=== PATIENT | male | born 1945 | race Caucasian/White ===

== ENCOUNTER 2018-05-21 12:25 | Outpatient (REF) | payer OTHER, SELFPAY ==
[2018-05-21 22:14] LABS: Anion Gap 9.5 mmol/L (3-11); BUN 31 mg/dL (7-18); CO2 28.5 mmol/L (21.0-32.0); CREATININE 1.02 mg/dL (0.70-1.30); Chloride 101 mmol/L (98-107); Glucose 129 mg/dL (70-100); Potassium 4.5 mmol/L (3.5-5.1); Sodium 139 mmol/L (136-145)
[2018-05-23 10:19] LABS: PSA, Screening 1.5 ng/ml (0-6.5)
[2018-05-23 12:18] LABS: Hepatitis C Ab w Rflx HCV PCR Negative (NEGAT)
[2018-05-25 08:57] LABS: Testosterone, Free 15.8 ng/dL (3.28-12.2); Testosterone, Total 464 ng/dL (240-950)
== END 2018-05-21 12:45 ==
LOC: NCHCN 12:25
PROVIDERS: PCP Internal Medicine; Visit Provider Internal Medicine
DX: E11.9 Type 2 diabetes mellitus without complications (principal); N40.1 Benign prostatic hyperplasia with lower urinary tract symptoms; E03.9 Hypothyroidism, unspecified; I10 Essential (primary) hypertension; Z11.59 Encounter for screening for other viral diseases; Z12.5 Encounter for screening for malignant neoplasm of prostate
CPT/HCPCS: 80048; 84153; 84402; 84403; 86803; 84443

== ENCOUNTER 2019-07-01 16:03 | Outpatient (REF) | payer OTHER, SELFPAY ==
[2019-07-01 21:08] LABS: ALT 68 U/L (16-63); AST 27 U/L (15-37); Alkaline Phosphatase 89 U/L (46-116); BUN 34 mg/dL (7-18); Bilirubin, Total 0.5 mg/dL (0.2-1.0); Calcium 8.9 mg/dL (8.5-10.1); Chloride 103 mmol/L (98-107); Estimated GFR 59.35 (mL/min/1.73m2); Glucose 155 mg/dL (74-106); Potassium 4.7 mmol/L (3.5-5.1); Sodium 141 mmol/L (136-145); TSH 3.08 uIU/mL (0.36-3.74); Total Protein 7.1 g/dL (6.4-8.2)
[2019-07-04 12:55] LABS: Testosterone, Total 404 ng/dL (240-950)
== END 2019-07-01 16:23 ==
LOC: NCHCN 16:03
PROVIDERS: PCP Internal Medicine; Visit Provider Internal Medicine
DX: I10 Essential (primary) hypertension (principal); E11.9 Type 2 diabetes mellitus without complications; N40.1 Benign prostatic hyperplasia with lower urinary tract symptoms
CPT/HCPCS: 80053; 84403; 84443

== ENCOUNTER 2020-05-27 14:10 | Outpatient (REF) | payer OTHER, SELFPAY ==
[2020-05-27 21:38] LABS: Hemoglobin A1C 6.7 % (<5.7)
[2020-05-27 21:47] LABS: Anion Gap 7.5 mmol/L (3-11); BUN 24 mg/dL (7-18); CO2 28.5 mmol/L (21.0-32.0); Calcium 8.8 mg/dL (8.5-10.1); Calculated LDL 50 mg/dL (<100); Chloride 103 mmol/L (98-107); Cholesterol 121 mg/dL (<200); Estimated GFR 59.35 (mL/min/1.73m2); Glucose 134 mg/dL (74-106); HDL Cholesterol 52 mg/dL (40-60); Potassium 4.6 mmol/L (3.5-5.1); Sodium 139 mmol/L (136-145); TSH 3.02 uIU/mL (0.36-3.74); Triglyceride 96 mg/dL (<150)
[2020-05-28 19:06] LABS: PSA, Screening 1.1 ng/mL (0.0-6.5)
== END 2020-05-27 14:30 ==
LOC: NCHCN 14:10
PROVIDERS: PCP Internal Medicine; Visit Provider Internal Medicine
DX: E11.9 Type 2 diabetes mellitus without complications (principal); E03.9 Hypothyroidism, unspecified; I10 Essential (primary) hypertension; E78.00 Pure hypercholesterolemia, unspecified; Z12.5 Encounter for screening for malignant neoplasm of prostate
CPT/HCPCS: 80048; 80061; 84153; 83036; 84443

== ENCOUNTER 2020-11-16 13:21 | Outpatient (CLI) | payer OTHER, SELFPAY ==
--- NOTE | 2020-11-16 | DI.RAD_ITS ---
Exam(s) XR HUMERUS LT EXAM: XR HUMERUS LT CLINICAL HISTORY: INJURY PAIN T14.90. TECHNIQUE: 2D digital imaging was performed. COMPARISON: No exams were available for comparison no evidence of humeral fracture nor dislocation. Some degenerative cysts are noted in the greater tuberosity of the humeral head. No osseous lesions . FINDINGS: IMPRESSION: DATA REPOSITORY: RADIATION DOSE DELIVERED:
--- NOTE | 2020-11-16 17:54 | DI.VRAD_ITS ---
PROCEDURE INFORMATION: Exam: XR Left Humerus Exam date and time: 11/16/2020 5:00 PM Age: 75 years old Clinical indication: Patient HX: Left arm pain, left shoulder pain, after fall 11/15/2020. Best images possible TECHNIQUE: Imaging protocol: XR Left humerus. Views: 2 or more views. COMPARISON: CR XR SHOULDER LT COMPLETE 2+V 11/16/2020 5:12 PM FINDINGS: Bones/joints: Normal. Soft tissues: Normal. IMPRESSION: No evidence for acute posttraumatic abnormality. Dictated and Authenticated by: Lori Irvin MD. Ordering:ALFONSO Mcbride MD
== END 2020-11-16 13:41 ==
PROVIDERS: PCP Internal Medicine; Visit Provider Internal Medicine
DX: M25.511 Pain in right shoulder (principal); S49.81XA Other specified injuries of right shoulder and upper arm, initial encounter
CPT/HCPCS: 73060

== ENCOUNTER 2020-11-16 15:51 | Outpatient (CLI) | payer OTHER, SELFPAY ==
--- NOTE | 2020-11-16 | DI.RAD_ITS ---
Exam(s) XR SHOULDER LT COMPLETE 2+V EXAM: XR SHOULDER LT COMPLETE 2+V CLINICAL HISTORY: injury t14.90xA. TECHNIQUE: 2D digital imaging was performed. COMPARISON: No exams were available for comparison FINDINGS: There is no evidence of acute fracture or dislocation of the humeral head. Moderate degenerative joaquin nges in the glenohumeral joint are noted. There is a small 1-2 millimeter ossified density seen supa cent to the inferior aspect of the humeral head and osseous glenoid. Possibly loose intra-articular body versus is bony Bankart lesion. Subtle calcification is noted in the medial subacromial space. Degenerative changes in the AC joint as well as impingement hook on the inferior articular surface of the acromion noted. These findings are most probably causing impingement upon the rotator cuff josé azul. IMPRESSION: DATA REPOSITORY: RADIATION DOSE DELIVERED:
--- NOTE | 2020-11-16 17:54 | DI.VRAD_ITS ---
PROCEDURE INFORMATION: Exam: XR Left Shoulder Exam date and time: 11/16/2020 4:42 PM Age: 75 years old Clinical indication: Patient HX: Left shoulder pain, PT fell yesterday. Best images possible due to PT mobility TECHNIQUE: Imaging protocol: XR Left shoulder. Views: 2 or more views. COMPARISON: No relevant prior studies available. FINDINGS: Bones/joints: Normal. Soft tissues: Normal. IMPRESSION: No evidence for acute posttraumatic abnormality. Dictated and Authenticated by: Lori Irvin MD. Ordering:ALFONSO Mcbride MD
== END 2020-11-16 16:11 ==
PROVIDERS: PCP Internal Medicine; Visit Provider Internal Medicine
DX: S49.92XA Unspecified injury of left shoulder and upper arm, initial encounter (principal); W19.XXXA Unspecified fall, initial encounter
CPT/HCPCS: 73030

== ENCOUNTER 2021-02-07 17:46 | Outpatient (REF) | payer OTHER, SELFPAY ==
[2021-02-09 12:59] LABS: COVID-19 RT-PCR UVMMC Result Negative (Negative)
== END 2021-02-07 17:47 | disposition home or self-care (01) ==
LOC: NCHCN 17:46
PROVIDERS: PCP Internal Medicine; Visit Provider Family Medicine
DX: Z20.822 Contact with and (suspected) exposure to COVID-19 (principal); J06.9 Acute upper respiratory infection, unspecified
CPT/HCPCS: U0003

== ENCOUNTER 2021-03-10 11:04 | Outpatient (REF) | payer MEDICARE, SELFPAY ==
[2021-03-10 14:32] LABS: Anion Gap 6.5 mmol/L (3-11); BUN 33 mg/dL (7-18); CO2 31.5 mmol/L (21.0-32.0); Chloride 102 mmol/L (98-107); Glucose 211 mg/dL (74-106); Potassium 5.1 mmol/L (3.5-5.1); Sodium 140 mmol/L (136-145)
[2021-03-10 22:37] LABS: PSA, Diagnostic 1.6 ng/mL (0.0-6.5)
[2021-03-14 13:09] LABS: Testosterone, Total 210 ng/dL (240-950)
== END 2021-03-10 11:05 | disposition home or self-care (01) ==
LOC: NCHCN 11:04
PROVIDERS: PCP Internal Medicine; Visit Provider Internal Medicine
DX: E11.9 Type 2 diabetes mellitus without complications (principal); I10 Essential (primary) hypertension; E03.9 Hypothyroidism, unspecified; E29.1 Testicular hypofunction; N39.41 Urge incontinence; N40.1 Benign prostatic hyperplasia with lower urinary tract symptoms
CPT/HCPCS: 80048; 84402; 84403; 84153; 84443

== ENCOUNTER 2021-06-03 11:24 | Emergency (ER) | payer MEDICARE, SELFPAY ==
[2021-06-03] VITALS (14 sets, daily range): BP systolic 139–167; BP diastolic 76–88; PULSE 67–80; RESP 16–43; TEMP 36.7; O2SAT 94–99
--- NOTE | 2021-06-03 11:30 | RT.EKG_ITS ---
APPROVED REPORT Exam: Resting ECG Reason for Exam: sob Patient Location: E HR:77 bpm ECG Measurements Heart Rate 77 AXIS TX 183 P 37 QRSd 95 QRS 1 QT 365 T 8 QTc 413 Conclusion Sinus rhythm...normal P axis, V-rate 60- 99
--- NOTE | 2021-06-03 12:15 | DI.RAD_ITS ---
Exam(s) XR PORTABLE CHEST AP EXAM: XR PORTABLE CHEST AP CLINICAL HISTORY: cough 3 weeks TECHNIQUE: 2D digital imaging was performed of the chest. One image was obtained. An AP view was ob tained. COMPARISON: No exams were available for comparison FINDINGS: MEDIASTINUM: Normal. HEART: Normal. PULMONARY VASCULATURE: Normal. LUNGS: No focal consolidating infiltrates are seen. Mildly prominent interstitial markings are seen in the lungs. These are nonspecific. This may be due to poor inspiration and crowding of the pulmon suresh vasculature, chronic interstitial fibrotic change or acute interstitial infiltrate. PLEURAL SPACE: No pleural effusion or pneumothorax. BONE:Within normal limits for the patient's age. OTHER FINDINGS:Normal. IMPRESSION: 1. Mild prominence of the interstitial markings in the lungs. Differential considerations include po or inspiration, chronic interstitial disease or acute interstitial infiltrate. Please correlate clin ically. DATA REPOSITORY: RADIATION DOSE DELIVERED:
--- NOTE | 2021-06-03 12:44 | ED.GENADUL_ITS ---
Discharge Plan Disposition Patient Disposition: HOME Condition: Stable Discharge Details Clinical Impression: Pneumonia Primary Care Provider: Reed Calderón ED Provider: Amol Saleh Home Meds and New Rx's Prescriptions: New levofloxacin 750 mg tablet 750 mg PO DAILY Qty: 4 RF: 0 Continued multivitamin 1 EACH tablet 1 ea PO DAILY RF: 0 loratadine-pseudoephedrine [Loratadine-D] 1 EACH tablet extended release 24 hr 1 tab-cap PO DAILY RF: 0 alprazolam [Xanax] 0.5 MG tablet 0.5 mg PO PRN PRNRF: 0 calcium carbonate 600 MG tablet 600 mg PO DAILY RF: 0 tamsulosin 0.4 MG capsule 0.8 mg PO DAILY RF: 0 betamethasone valerate 15 GM cream 15 gm Topical PRN PRNRF: 0 levothyroxine 125 MCG tablet 125 mcg PO DAILY RF: 0 ascorbic acid (vitamin C) [Vitamin C] 500 MG capsule, extended release 500 mg PO DAILY RF: 0 aspirin [Aspirin Low-Strength] 81 MG tablet,chewable 81 mg PO DAILY RF: 0 codeine-guaifenesin 120 ML liquid 120 ml PO PRN PRNRF: 0 zinc 50 MG tablet 50 mg PO DAILY RF: 0 metoprolol succinate 25 MG tablet extended release 24 hr 50 mg PO DAILY RF: 0 ergocalciferol (vitamin D2) [Vitamin D2] 50,000 UNIT capsule 1 tab-cap PO DAILY RF: 0 testosterone cypionate 200 MG/1 ML oil 200 mg IM UNKNOWN RF: 0 magnesium 200 MG tablet 200 mg PO DAILY RF: 0 vardenafil [Levitra] 20 MG tablet 20 mg PO DAILY RF: 0 glucosamine sulfate 2KCl 1,000 MG tablet 1,000 mg PO BID RF: 0 Pentasa 250 MG capsule, extended release 1,000 mg PO QID Qty: 120 RF: 3 diclofenac-misoprostol [Arthrotec 50] 1 EACH tablet,IR,delayed rel,biphasic 1 ea PO TID Qty: 90 RF: 1 acetaminophen [Arthritis Pain Relief (acetam)] 650 MG tablet extended release 1,300 mg PO BID RF: 0 budesonide 3 mg capsule,delayed,extend.release 3 mg PO DAILY RF: 0 loperamide 2 mg capsule 2 mg PO PRN PRNRF: 0 metformin 500 mg tablet 500 mg PO DAILY RF: 0 oxybutynin chloride 5 mg tablet extended release 24hr 5 mg PO DAILY RF: 0 melatonin 1 mg tablet extended release 1 mg PO HS RF: 0 cod liver oil Capsule 1 cap PO DAILY RF: 0 Pepto-Bismol 262 mg tablet 1 tab PO PRN PRNRF: 0 diphenoxylate-atropine [Lomotil] 2.5-0.025 mg Tablet 1 tab PO PRN PRNRF: 0 Arthrostatin 1 tab PO DAILY RF: 0 amlodipine 5 MG tablet 5 mg PO DAILY RF: 0 Discharge Instructions Instructions: Levofloxacin (By mouth), Pneumonia (ED) Care Plan Goals: Please drink plenty of fluids to stay hydrated and allow for plenty of rest. Please contact your primary care physician to arrange follow-up. You may have COVID-19. A Covid test was performed today. Please maintain home isolation until Covid test result is available and negative. Return to the ER immediately for any worsening or new concerning symptoms. Your glucose was mildly elevated today at 164. Please be sure to discuss this with your primary care physician. Your blood pressure was elevated today at 162/87. This may be related to medication that you have taken and should be rechecked. Be please be sure to discuss with your primary care physician Referrals: Reed Calderón MD [Primary Care Provider] - Medical Decision Making 1250 -- 75-year-old male here with cough and congestion waxing waning over the past 3-week, negative COVID-19 2 days ago, 2 family members sick with respiratory illness also both negative for Covid. Patient patient is saturating well and in no respiratory distress with clear lung sounds bilaterally Suspect viral upper respiratory tract infection. Given persistence of symptoms and prior pneumonia, consider pneumonia. I will obtain chest x-ray. Consider Covid and will send Covid testing. Screening EKG was obtained by nursing and reviewed and interpreted by me: Please see report, sinus rhythm, nondiagnostic. 1325 -- cxr reviewed and interpreted by radiology: 1. Mild prominence of the interstitial markings in the lungs. Differential considerations include poor inspiration, chronic interstitial disease or acute interstitial infiltrate. Please correlate clinically. Patient has multiple antibiotic allergies. Plan to treat with levaquin for community acquired pneumonia. Patient provided informed consent to treat with fluoroquinolone. Usual and customary discharge instructions were provided to patient. Medical screening exam was performed today and patient is stable for discharge with outpatient follow-up. HPI General Mode of arrival: ambulatory . Date/Time Provider Initiated Documentation: 06/03/21 11:34 . Limitations to Documentation: no limitations . Information obtained by: patient . HPI Narrative: 75-year-old male presents with chief complaint of cough. Patient notes persistent cough with associated ear pressure and sinus congestion, waxing and waning over the past 3 weeks. Cough is productive of white sputum intermittently. He has associated shortness of breath. No associated chest pain. No associated fever. He has had some body aches. Patient was seen at pharmacy and had Covid negative test 2 days ago. 2 family members are sick with respiratory illness 2 of both tested negative for Covid. Related Data Home Medications Medication Instructions Recorded Confirmed alprazolam [Xanax] 0.5 mg PO PRN PRN NS 08/18/14 06/03/21 ascorbic acid (vitamin C) [Vitamin 500 mg PO DAILY NS 08/18/14 06/03/21 C] aspirin [Aspirin Low-Strength] 81 mg PO DAILY tab-cap NS 08/18/14 06/03/21 betamethasone valerate 15 gm TOPICAL PRN PRN script NS 08/18/14 06/03/21 calcium carbonate 600 mg PO DAILY NS 08/18/14 06/03/21 codeine-guaifenesin 120 ml PO PRN PRN NS 08/18/14 06/03/21 ergocalciferol (vitamin D2) 1 tab-cap PO DAILY tab-cap NS 08/18/14 06/03/21 [Vitamin D2] glucosamine sulfate 2KCl 1,000 mg PO BID NS 08/18/14 06/03/21 levothyroxine 125 mcg PO DAILY tab-cap NS 08/18/14 06/03/21 loratadine-pseudoephedrine 1 tab-cap PO DAILY tab-cap NS 08/18/14 06/03/21 [Loratadine-D] magnesium 200 mg PO DAILY NS 08/18/14 06/03/21 metoprolol succinate 50 mg PO DAILY tab-cap NS 08/18/14 06/03/21 multivitamin 1 ea PO DAILY NS 08/18/14 06/03/21 tamsulosin 0.8 mg PO DAILY tab-cap NS 08/18/14 06/03/21 testosterone cypionate 200 mg IM UNKNOWN vial NS 08/18/14 06/03/21 vardenafil [Levitra] 20 mg PO DAILY tab-cap NS 08/18/14 06/03/21 zinc 50 mg PO DAILY NS 08/18/14 06/03/21 diclofenac-misoprostol [Arthrotec 1 ea PO TID #90 tablet. 09/07/14 06/03/21 50] Pentasa 1,000 mg PO QID #120 tab-cap 09/14/14 06/03/21 acetaminophen [Arthritis Pain 1,300 mg PO BID 11/16/14 06/03/21 Relief (acetam)] Arthrostatin 1 tab PO DAILY 11/04/17 06/03/21 amlodipine 5 mg PO DAILY 11/04/17 06/03/21 Pepto-Bismol 1 tab PO PRN PRN 06/03/21 06/03/21 budesonide 3 mg PO DAILY 06/03/21 06/03/21 cod liver oil 1 cap PO DAILY 06/03/21 06/03/21 diphenoxylate-atropine [Lomotil] 1 tab PO PRN PRN 06/03/21 06/03/21 levofloxacin 750 mg PO DAILY #4 tab 06/03/21 loperamide 2 mg PO PRN PRN 06/03/21 06/03/21 melatonin 1 mg PO HS 06/03/21 06/03/21 metformin 500 mg PO DAILY 06/03/21 06/03/21 oxybutynin chloride 5 mg PO DAILY 06/03/21 06/03/21 Previous Rx's Medication Instructions Recorded diclofenac-misoprostol [Arthrotec 1 ea PO TID #90 tablet. 09/07/14 50] levofloxacin 750 mg PO DAILY #4 tab 06/03/21 Allergies Allergy/AdvReac Type Severity Reaction Status Date / Time cephalexin monohydrate Allergy Unverified 06/03/21 11:45 [From Keflex] Penicillins Allergy Unverified 06/03/21 11:45 Sulfa (Sulfonamide Allergy Unverified 06/03/21 11:45 Antibiotics) Tetracyclines Allergy Unverified 06/03/21 11:45 General Stated Complaint: SOB KIRBY: 2 Review of Systems All systems reviewed & are unremarkable except as noted in HPI and below Constitutional Constitutional: Reports body ache(s) and Denies fever(s) Respiratory Respiratory: Reports as per HPI PFSH All Active Problems (Updated 06/03/21 @ 13:27 by Amol Saleh MD) Pneumonia (Acute) Medical History Depression Diabetes Hyperlipidemia Hypertension Hypogonadism in male Hypothyroidism Osteoarthritis Paroxysmal a-fib Psoriasis Urinary frequency Surgical History 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 Social History Smoking/Tobacco Use Status: Former Tobacco Use Smoking risk assessment performed?: Yes Alcohol Intake: current Alcohol Intake frequency: 0-2 drinks per day Drug use: Never Do you feel safe at home: Yes Do you feel safe in your relationship?: Yes Exam Const General: cooperative and no acute distress HENMT Ears: TM's normal bilaterally Mouth: moist mucous membranes Throat: posterior oropharynx abnormal erythema; no edema and no exudates Eyes Conjunctivae: normal conjunctivae Sclera: normal sclerae Neck Neck: trachea midline and supple Resp Auscultation: clear to auscultation bilaterally, no rales, no rhonchi and no wheezes Cardio Rate: regular rate and not tachycardic Rhythm: regular rhythm GI Palpation: soft, not firm, no guarding, no masses, not rigid and nontender Skin General skin exam: no rashes or lesions noted Neuro General: patient alert, patient awake, patient oriented x3 and tone normal Extrem General: no edema Psych Appearance: grossly normal Mental Status: mental status grossly normal Course Vital Signs Vital signs: Vital Signs Temperature 36.7 C 06/03/21 11:28 Pulse 78 06/03/21 11:28 Respiratory Rate 16 06/03/21 11:28 Blood Pressure 162/87 H 06/03/21 11:28 Pulse Oximetry 99 06/03/21 11:28 Temperature 36.7 C 06/03/21 11:28 Temperature Source Skin 06/03/21 11:28 Pulse 78 06/03/21 11:28 Respiratory Rate 16 06/03/21 11:28 Respiratory Effort Incrsd Work of Breathing 06/03/21 11:35 Blood Pressure 162/87 H 06/03/21 11:28 Pulse Oximetry 99 06/03/21 11:28 Oxygen Delivery Method Room Air 06/03/21 11:28 Oxygen Flow Rate 0 06/03/21 11:28 Pain Level 0 06/03/21 11:28 PAWSS Have you Been Recently Intoxicated or Drunk Within the Last 30 days?: No Have you Ever Experienced Previous Episodes of Alcohol Withdrawal?: No Have you ever Experienced Withdrawal Seizures?: No Have you ever Experienced Delirium Tremens(DT)s?: No Have you ever undergone Alcohol Rehabilitation Treatment (i.e, inpt ot out patient treatment programs)?: No Have you ever Experienced Blackouts?: No Have you ever Combined Alcohol with other Downers within the last 90 days?: No Have you ever Combined Alcohol with any other Substance of Abuse during the last 90 days?: No Positive Blood Alcohol level on Presentation? [PCS.BAL]: No Evidence of Increased Autonomic Activity (i.e. HR>120, tremor, sweating, agitation, nausea)?: No Result: 0
[2021-06-03 12:48] LABS: Abs Immature Grans 0.05 10^3/uL (0.0-0.06); Absolute Basophil Count 0.02 10^3/uL (0.0-0.2); Absolute Monocyte Count 0.66 10^3/uL (0.1-0.8); Absolute Neutrophil Count 5.42 10^3/uL (1.2-6.7); Basophils % 0.3; Eosinophils % 2.7; HCT 48.8 % (40.0-50.0); HGB 16.3 g/dL (13.5-17.5); Immature Grans % 0.7; Lymphocytes % 13.6; MCH 31.2 pg (27.0-33.0); MCHC 33.4 % (32.0-36.0); MCV 93.3 fL (80-95); Neutrophils % 73.7; Nucleated RBC 0 %; Platelet Count 292 10^3/uL (130-400); RBC 5.23 10^6/uL (4.36-5.78); RDW 12.3 % (11.8-14.1); RDW-SD 42.5 fL; WBC 7.35 10^3/uL (4.4-10.8)
[2021-06-03 13:14] LABS: ALT 85 U/L (16-63); AST 32 U/L (15-37); Albumin 3.7 g/dL (3.4-5.0); Alkaline Phosphatase 91 U/L (46-116); BUN 21 mg/dL (7-18); Bilirubin, Total 0.6 mg/dL (0.2-1.0); CREATININE 0.9 mg/dL (0.70-1.30); Calcium 8.8 mg/dL (8.5-10.1); Chloride 100 mmol/L (98-107); Glucose 164 mg/dL (74-106); Potassium 4.1 mmol/L (3.5-5.1); Sodium 136 mmol/L (136-145); Total Protein 7.6 g/dL (6.4-8.2)
[2021-06-03] MEDS: levoFLOXacin 250 MG TAB 750 MG PO (13:49)
[2021-06-04 13:16] LABS: COVID-19 RT-PCR UVMMC Result Negative (Negative)
--- NOTE | 2021-06-06 07:44 | NUR.NOTE ---
Nursing Note: Negative Covid result given to pt--verbalizes understanding.
== END 2021-06-03 14:24 | disposition home or self-care (01) ==
PROVIDERS: Emergency Provider Student in an Organized Health Care Education/Training Program; PCP Internal Medicine
DX: J18.9 Pneumonia, unspecified organism (principal); Z20.822 Contact with and (suspected) exposure to COVID-19; R05.1 Acute cough
CPT/HCPCS: 36415; 80053; 93005; 99283; 99284; U0003; U0005; 71045; 85025; 93010

== ENCOUNTER 2021-10-04 16:09 | Outpatient (REF) | payer MEDICARE, SELFPAY ==
[2021-10-04 15:18] LABS: CREATININE 0.9 mg/dL (0.70-1.30)
== END 2021-10-04 16:10 | disposition home or self-care (01) ==
LOC: NCHCN 16:09
PROVIDERS: PCP Internal Medicine; Visit Provider Internal Medicine
DX: U07.1 COVID-19 (principal)
CPT/HCPCS: 82565

== ENCOUNTER 2022-03-28 16:38 | Outpatient (REF) | payer MEDICARE, SELFPAY ==
[2022-03-30 09:46] LABS: PSA, Screening 1.6 ng/mL (<=6.5)
[2022-04-06 13:02] LABS: Testosterone, Free 36.9 ng/dL (3.08-11.3); Testosterone, Total 784 ng/dL (240-950)
== END 2022-03-28 16:39 | disposition home or self-care (01) ==
LOC: NCHCN 16:38
PROVIDERS: PCP Internal Medicine; Visit Provider Internal Medicine
DX: N40.1 Benign prostatic hyperplasia with lower urinary tract symptoms (principal); E11.9 Type 2 diabetes mellitus without complications; I10 Essential (primary) hypertension; E29.1 Testicular hypofunction; K52.839 Microscopic colitis, unspecified; Z12.5 Encounter for screening for malignant neoplasm of prostate
CPT/HCPCS: 84153; 84402; 84403

== ENCOUNTER 2022-07-06 16:20 | Outpatient (REF) | payer MEDICARE, SELFPAY ==
[2022-07-06 14:26] LABS: ALT 70 U/L (16-63); AST 25 U/L (15-37); Alkaline Phosphatase 114 U/L (46-116); BUN 24 mg/dL (7-18); Bilirubin, Total 0.8 mg/dL (0.2-1.0); CREATININE 0.9 mg/dL (0.70-1.30); Calcium 9.6 mg/dL (8.5-10.1); Chloride 101 mmol/L (98-107); Estimated GFR 88.51 (mL/min/1.73m2); Glucose 162 mg/dL (74-106); Potassium 4.4 mmol/L (3.5-5.1); Sodium 138 mmol/L (136-145); Total Protein 7.9 g/dL (6.4-8.2)
== END 2022-07-06 16:21 | disposition home or self-care (01) ==
LOC: NCHCN 16:20
PROVIDERS: PCP Internal Medicine; Visit Provider Internal Medicine
DX: E11.9 Type 2 diabetes mellitus without complications (principal)
CPT/HCPCS: 80053

== ENCOUNTER 2022-08-11 01:01 | Outpatient (CLI) | payer MEDICARE, SELFPAY ==
--- NOTE | 2022-08-11 | DI.US_ITS ---
Exam(s) US LOWER EXTREMITY VENOUS RT EXAM: US LOWER EXTREMITY VENOUS RT CLINICAL HISTORY: RT CALF PAIN, M79.661,RT KNEE PAIN,M25.561,RT LEG EDEMA, R60.0,? DVT TECHNIQUE: Right lower extremity venous ultrasound performed using grayscale, color-flow, and spectr al Doppler analysis. COMPARISON: No exams were available for comparison FINDINGS: The right common femoral, femoral and popliteal veins demonstrate normal compressibility, augmentatio n, and color Doppler. The posterior tibial veins are patent. The saphenofemoral junction is unremark able. There is a 3.7 x 1.4 x 1.9 cm Gomez cyst. There is fluid seen anterior to the patella. IMPRESSION: 1. No evidence of a right lower extremity DVT. 2. Fluid seen anterior to the patella which may represent prepatellar bursitis. Hematoma, abscess or seroma cannot be excluded. Please correlate clinically. 3. Gomez cyst. DATA REPOSITORY:
== END 2022-08-11 01:21 ==
LOC: DI 01:09
PROVIDERS: PCP Internal Medicine; Visit Provider Internal Medicine
DX: M79.661 Pain in right lower leg (principal); M71.21 Synovial cyst of popliteal space [Baker], right knee; M25.561 Pain in right knee; R60.0 Localized edema
CPT/HCPCS: 93971

== ENCOUNTER 2022-08-21 12:46 | Outpatient (CLI) | payer MEDICARE, SELFPAY ==
[2022-08-21 13:19] LABS: Abs Immature Grans 0.07 10^3/uL (0.0-0.06); Absolute Basophil Count 0.02 10^3/uL (0.0-0.2); Absolute Eosinophil Count 0.08 10^3/uL (0.0-0.7); Absolute Lymphocyte Count 1.01 10^3/uL (1.2-3.4); Absolute Monocyte Count 0.63 10^3/uL (0.1-0.8); Absolute Neutrophil Count 8.13 10^3/uL (1.2-6.7); Basophils % 0.2; Eosinophils % 0.8; HCT 42.4 % (40.0-50.0); HGB 14.4 g/dL (13.5-17.5); Immature Grans % 0.7; Lymphocytes % 10.2; MCH 30.4 pg (27.0-33.0); MCV 90 fL (80-95); MPV 8.8 fL (8.0-11.0); Monocytes % 6.3; Neutrophils % 81.8; Platelet Count 361 10^3/uL (130-400); RBC 4.74 10^6/uL (4.36-5.78); RDW 11.9 % (11.8-14.1); RDW-SD 38.9 fL; WBC 9.94 10^3/uL (4.4-10.8)
[2022-08-21 13:29] LABS: C-Reactive Protein 1.74 mg/dL (0.0-0.3)
[2022-08-21 13:33] LABS: ESR 54 mm/hr (0-20)
== END 2022-08-21 12:47 | disposition home or self-care (01) ==
LOC: LBO 12:46
PROVIDERS: PCP Internal Medicine; Visit Provider Orthopaedic Surgery Adult Reconstructive Orthopaedic Surgery
DX: M25.561 Pain in right knee (principal); Z96.651 Presence of right artificial knee joint; G89.29 Other chronic pain; R53.81 Other malaise; R70.0 Elevated erythrocyte sedimentation rate
CPT/HCPCS: 36415; 85652; 85025; 86140

== ENCOUNTER 2022-08-28 18:45 | Outpatient (REF) | payer MEDICARE, SELFPAY ==
[2022-08-28 20:55] LABS: Abs Immature Grans 0.05 10^3/uL (0.0-0.06); Absolute Basophil Count 0.03 10^3/uL (0.0-0.2); Absolute Eosinophil Count 0.43 10^3/uL (0.0-0.7); Absolute Lymphocyte Count 1.29 10^3/uL (1.2-3.4); Absolute Monocyte Count 0.99 10^3/uL (0.1-0.8); Absolute Neutrophil Count 7.07 10^3/uL (1.2-6.7); Basophils % 0.3; Eosinophils % 4.4; HCT 44.6 % (40.0-50.0); Immature Grans % 0.5; Lymphocytes % 13.1; MCH 30.6 pg (27.0-33.0); MCHC 33.6 % (32.0-36.0); MCV 91 fL (80-95); MPV 9.7 fL (8.0-11.0); Neutrophils % 71.7; Platelet Count 398 10^3/uL (130-400); RDW 12.4 % (11.8-14.1); WBC 9.86 10^3/uL (4.4-10.8)
[2022-08-28 21:05] LABS: ESR 47 mm/hr (0-20)
[2022-08-28 21:10] LABS: Bilirubin Negative (Negative); Blood Negative (Negative); Clarity Sl Cloudy (Clear); Glucose Negative (Negative); Ketones Negative (Negative); Leukocyte Esterase Negative (Negative); Nitrite Negative (Negative); Specific Gravity 1.025 (1.005-1.025); Urobilinogen 0.2 mg/dL (Up to 0.2)
[2022-08-28 21:15] LABS: C-Reactive Protein 1.65 mg/dL (0.0-0.3)
[2022-08-28 21:25] LABS: Bacteria Negative HPF (Negative); C & S Indicated? No; Casts Negative LPF (Negative); Crystals Negative HPF (Negative); Epithelial Cells Rare HPF (Negative); Mucus Negative (Negative); RBC 0-2 HPF (0-2); WBC 0-2 HPF (0-5)
== END 2022-08-28 18:46 | disposition home or self-care (01) ==
LOC: NCHCN 18:45
PROVIDERS: PCP Internal Medicine; Visit Provider Family Medicine
DX: N40.1 Benign prostatic hyperplasia with lower urinary tract symptoms (principal); R70.0 Elevated erythrocyte sedimentation rate; M25.50 Pain in unspecified joint; G62.9 Polyneuropathy, unspecified; R82.998 Other abnormal findings in urine
CPT/HCPCS: 85652; 81003; 81015; 85025; 86140

== ENCOUNTER 2022-08-31 14:14 | Emergency (ER) | payer MEDICARE, SELFPAY ==
[2022-08-31 14:28] VITALS: BP 121/69; TEMP 37; O2SAT 99
--- NOTE | 2022-08-31 15:05 | ED.GENADUL_ITS ---
Discharge Plan Disposition Patient Disposition: Home Discharge Details Clinical Impression: Finger laceration Primary Care Provider: Reed Calderón ED Provider: Didier Cortes Home Meds and New Rx's Prescriptions: Continued finasteride 5 mg tablet 5 mg PO DAILY tramadol 50 mg tablet See Rx Instructions PO Q6H PRN Rx Instructions: 1-2 tabs orally every 6 hours PRN; clindamycin HCl 300 mg capsule See Rx Instructions PO .COMPLEX Rx Instructions: orally; Take 2 capsules 1hr prior to dental procedure, and 1 capsule 4 times a day for a soft tissue infection. atorvastatin 20 mg tablet 20 mg PO DAILY diphenhydramine-acetaminophen [Tylenol PM Extra Strength] 25-500 mg tablet 2 tab PO QHS PRN (Reason: sleep) Daily Probiotic (10 Strains) 4 billion cell capsule PO multivitamin 1 EACH tablet 1 ea PO DAILY Loratadine-D 1 EACH tablet extended release 24 hr 1 tab-cap PO DAILY alprazolam [Xanax] 0.5 MG tablet 0.5 mg PO PRN PRN calcium carbonate 600 MG tablet 600 mg PO DAILY tamsulosin 0.4 MG capsule 0.8 mg PO DAILY betamethasone valerate 15 GM cream 15 g Topical PRN PRN levothyroxine 125 MCG tablet 125 mcg PO DAILY ascorbic acid (vitamin C) [Vitamin C] 500 MG capsule, extended release 500 mg PO DAILY zinc 50 MG tablet 50 mg PO DAILY ergocalciferol (vitamin D2) [Vitamin D2] 50,000 UNIT capsule 1 tab-cap PO DAILY testosterone cypionate 200 MG/1 ML oil 200 mg IM UNKNOWN magnesium 200 MG tablet 200 mg PO DAILY glucosamine sulfate 2KCl 1,000 MG tablet 1,000 mg PO BID metoprolol succinate 25 mg tablet extended release 24 hr 50 mg PO BID loperamide 2 mg capsule 2 mg PO PRN PRN Patient Comments: Take 1-2 capsule by mouth as needed metformin 500 mg tablet 500 mg PO DAILY melatonin 1 mg tablet extended release 1 mg PO HS cod liver oil Capsule 1 cap PO DAILY Pepto-Bismol 262 mg tablet 1 tab PO PRN PRN diphenoxylate-atropine [Lomotil] 2.5-0.025 mg Tablet 1 tab PO PRN PRN oxybutynin chloride 5 mg tablet extended release 24hr 10 mg PO DAILY Patient Comments: Take 1 tablet by mouth once a day budesonide 3 mg capsule,delayed,extend.release 3 mg PO DAILY Rx Instructions: Take 3tabs daily until better, then 2 daily for 1 week, 1 tab Qam for 1 week, and then stop. amlodipine 5 mg tablet 10 mg PO DAILY Discharge Instructions Instructions: Finger Laceration (ED), Skin Adhesive Care (ED) Discharge Data Discharge Date/Time-TO BE ENTERED AT DEPARTURE: 08/31/22 15:27 Discharge Physician: Didier Cortes Medical Decision Making Patient presents to the emergency department saying 1 cm superficial laceration to the right index finger just. Laceration was repaired successfully with skin glue Differential Diagnosis Differential Diagnosis: 1. Finger laceration 2. Finger abrasion Medical Records Medical records reviewed: Yes I reviewed the patient's medical records. HPI General Date/Time Provider Initiated Documentation: 08/31/22 15:04 . HPI Narrative: Patient presents to the emergency department after he sustained a laceration to his right index finger with a kitchen knife. Patient states he had significant bleeding but bleeding has stopped Related Data Home Medications Medication Instructions Recorded Confirmed Loratadine-D 10 mg-240 mg 1 tab-cap PO DAILY 08/18/14 06/22/22 tablet,extended release 24 hr (loratadine-pseudoephedrine) Vitamin C 500 mg capsule,extended 500 mg PO DAILY 08/18/14 06/22/22 release (ascorbic acid (vitamin C)) Vitamin D2 1,250 mcg (50,000 unit) 1 tab-cap PO DAILY 08/18/14 06/22/22 capsule (ergocalciferol (vitamin D2)) Xanax 0.5 mg tablet (alprazolam) 0.5 mg PO PRN PRN 08/18/14 06/22/22 betamethasone valerate 0.1 % 15 g topical PRN PRN 08/18/14 06/22/22 topical cream calcium carbonate 600 mg calcium 600 mg PO DAILY 08/18/14 06/22/22 (1,500 mg) tablet glucosamine sulfate 2KCl 1,000 mg 1,000 mg PO BID 08/18/14 06/22/22 tablet levothyroxine 125 mcg tablet 125 mcg PO DAILY 08/18/14 06/22/22 magnesium 200 mg tablet 200 mg PO DAILY 08/18/14 06/22/22 multivitamin 1 ea PO DAILY 08/18/14 06/22/22 tamsulosin 0.4 mg capsule 0.8 mg PO DAILY 08/18/14 06/22/22 testosterone cypionate 200 mg/mL 200 mg IM UNKNOWN 08/18/14 06/22/22 intramuscular oil zinc 50 mg tablet 50 mg PO DAILY 08/18/14 06/22/22 bismuth subsalicylate 262 mg 1 tab PO PRN PRN 06/03/21 06/22/22 tablet (Pepto-Bismol) cod liver oil 1 cap PO DAILY 06/03/21 06/22/22 diphenoxylate-atropine 2.5 1 tab PO PRN PRN 06/03/21 06/22/22 mg-0.025 mg tablet (Lomotil) loperamide 2 mg capsule 2 mg PO PRN PRN 06/03/21 06/22/22 melatonin 1 mg tablet,extended 1 mg PO HS 06/03/21 06/22/22 release metformin 500 mg tablet 500 mg PO DAILY 06/03/21 06/22/22 metoprolol succinate 25 mg 50 mg PO BID 03/23/22 06/22/22 tablet,extended release 24 hr Lactobac 51-Bifidobac cap PO 06/21/22 06/22/22 3-L.lactis-S.thermophilus 4 billion cell capsule (Daily Probiotic (10 Strains)) amlodipine 5 mg tablet 10 mg PO DAILY 06/21/22 06/22/22 atorvastatin 20 mg tablet 20 mg PO DAILY 06/21/22 06/22/22 budesonide 3 mg 3 mg PO DAILY 06/21/22 06/22/22 capsule,delayed,extended release clindamycin HCl 300 mg capsule See Rx Instructions PO .COMPLEX 06/21/22 06/22/22 diphenhydramine 25 2 tab PO QHS PRN sleep 06/21/22 06/22/22 mg-acetaminophen 500 mg tablet (Tylenol PM Extra Strength) finasteride 5 mg tablet 5 mg PO DAILY 06/21/22 06/22/22 oxybutynin chloride 5 mg 10 mg PO DAILY 06/21/22 06/22/22 tablet,extended release 24 hr tramadol 50 mg tablet See Rx Instructions PO Q6H PRN 06/21/22 06/22/22 Allergies Allergy/AdvReac Type Severity Reaction Status Date / Time brimonidine [From Combigan] Allergy Severe Verified 06/21/22 21:16 timolol [From Combigan] Allergy Severe Verified 06/21/22 21:16 cephalexin monohydrate Allergy Verified 03/23/22 11:12 [From Keflex] Penicillins Allergy Verified 03/23/22 11:12 Sulfa (Sulfonamide Allergy Verified 03/23/22 11:12 Antibiotics) Tetracyclines Allergy Verified 03/23/22 11:12 General Stated Complaint: Laceration KIRBY: 4 Review of Systems All systems reviewed & are unremarkable except as noted in HPI and below Eyes Eyes: Reports as per HPI and Reports system reviewed and no additional complaints, except as documented ENT Ears, Nose, Mouth, and Throat: Reports system reviewed and no additional complaints, except as documented Cardiovascular Cardiovascular: Reports system reviewed and no additional complaints, except as documented Respiratory Respiratory: Reports system reviewed and no additional complaints, except as do cumented Musculoskeletal Musculoskeletal: Reports system reviewed and no additional complaints, except as documented PFSH All Active Problems (Updated 08/31/22 @ 15:24 by Didier Cortes MD) Finger laceration (Acute) Neuropathy (Acute) Corns and callosities (Acute) Nail dystrophy (Acute) Medical History Depression Diabetes Hyperlipidemia Hypertension Hypogonadism in male Hypothyroidism Osteoarthritis Paroxysmal a-fib Psoriasis Urinary frequency Surgical History 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 Social History Smoking/Tobacco Use Status: Former Tobacco Use Smoking risk assessment performed?: Yes Alcohol Intake: current Alcohol Intake frequency: 0-2 drinks per day Drug use: Never Do you feel safe at home: Yes Do you feel safe in your relationship?: Yes Exam Const General: cooperative, healthy appearing, comfortable and no acute distress HENMT Head: normal to inspection and no palpable skull fracture Face and sinus: normal facial exam Mouth: oral mucosae normal Eyes General: appearance normal, both eyes and all related structures Neck Neck: normal visual inspection and no lymphadenopathy Chest Chest: normal inspection of the chest and normal palpation of entire chest wall Resp Effort & Inspection: normal respiratory effort and able to speak in complete sentences Cardio Palpation: normal PMI Rate: regular rate Rhythm: regular rhythm Back/Spine/Pelvis Back: no CVA tenderness Thoracic/Lumbar Spine: thoracic and lumbar spine normal to inspection Skin Trauma: laceration (Wounds laceration of the distal aspect of the right index finger) right distal 2nd finger flap Neuro General: patient alert and patient oriented x3 Course Vital Signs Vital signs: Vital Signs Temperature 37.0 C 08/31/22 14:28 Blood Pressure 121/69 08/31/22 14:28 Pulse Oximetry 99 08/31/22 14:28 Temperature 37.0 C 08/31/22 14:28 Temperature Source Oral 08/31/22 14:28 Blood Pressure 121/69 08/31/22 14:28 Blood Pressure Position Sitting 08/31/22 14:28 Pulse Oximetry 99 08/31/22 14:28 Oxygen Delivery Method Room Air 08/31/22 14:28 Oxygen Flow Rate 0 08/31/22 14:28 Pain Level 1 08/31/22 14:28 Procedures Laceration Laceration 1: Site: hand (Right index finger ) Side (If applicable): right Size (cm): 1 Description: flap Depth: simple, single layer Skin layer closed with: other (dermabond repair)
== END 2022-08-31 15:27 | disposition home or self-care (01) ==
PROVIDERS: Emergency Provider Emergency Medicine Emergency Medical Services; PCP Internal Medicine
DX: S61.210A Laceration without foreign body of right index finger without damage to nail, initial encounter (principal); W26.0XXA Contact with knife, initial encounter
CPT/HCPCS: 12001

== ENCOUNTER → 2022-09-07 10:45 | Outpatient (BNVA) | payer MEDICARE, SELFPAY | PROVIDERS: PCP Internal Medicine; Referring Provider Internal Medicine; Visit Provider Nurse Practitioner Gerontology | DX: N40.1 Benign prostatic hyperplasia with lower urinary tract symptoms (principal); N13.8 Other obstructive and reflux uropathy; R33.9 Retention of urine, unspecified | CPT/HCPCS: 51798; 99214 ==

== ENCOUNTER → 2022-12-26 14:28 | Outpatient (BNVA) | payer MEDICARE, SELFPAY | PROVIDERS: PCP Internal Medicine; Referring Provider Internal Medicine; Visit Provider Nurse Practitioner Gerontology | DX: N40.1 Benign prostatic hyperplasia with lower urinary tract symptoms (principal); N13.8 Other obstructive and reflux uropathy; R33.9 Retention of urine, unspecified | CPT/HCPCS: 51798; 99213 ==

== ENCOUNTER 2023-02-21 10:23 | Outpatient (REF) | payer MEDICARE, SELFPAY | END 2023-02-21 10:24 | disposition home or self-care (01) | LOC: LBN 10:23 | PROVIDERS: PCP Internal Medicine; Visit Provider Podiatrist | DX: L03.116 Cellulitis of left lower limb (principal) | CPT/HCPCS: 87077; 87070; 87075; 87186; 87205 ==

== ENCOUNTER 2023-03-19 13:16 | Outpatient (REF) | payer MEDICARE, SELFPAY ==
--- OUTSIDE RECORDS SUMMARY | 2023-03-19 13:18 | XMS_ITS | Continuity of Care Document ---
Author Name Unknown Organization [facility] Amb[facility] Address [address] [place] [address] Care Team Providers Care Hand Printed Circuit Board Assembler Name Role Phone Reed Calderón Primary Care Physician [phone] Encounter [facility] NBR [id number] Date(s): 11/24/22 - 11/24/22 [facility] [address] [place] [address] [place] Discharge Disposition: Home Allergies, Adverse Reactions, Alerts Substance Reaction Severity Status penicillin Unknown Active sulfa drugs Unknown Active Keflex Unknown Active Medications amLODIPine 10 mg oral tablet 10 mg = 1 tab, Oral, Daily, # 30 tab, 0 Refill(s) Start Date: 11/24/22 Status: Ordered atorvastatin 20 mg oral tablet 20 mg = 1 tab, Oral, Daily, # 30 tab, 0 Refill(s) Start Date: 11/24/22 Status: Ordered budesonide 3 mg oral delayed release capsule 0 Refill(s) Start Date: 11/24/22 Status: Ordered cyclobenzaprine 5 mg oral tablet 0 Refill(s) Start Date: 11/24/22 Status: Ordered finasteride 5 mg oral tablet 5 mg = 1 tab, Oral, Daily, # 30 tab, 0 Refill(s) Start Date: 11/24/22 Status: Ordered levothyroxine 125 mcg (0.125 mg) oral tablet 0 Refill(s) Start Date: 11/24/22 Status: Ordered loperamide 2 mg oral capsule 2 mg = 1 cap, Oral, every 4 hr, PRN as needed for loose stool, # 60 cap, 0 Refill(s) Start Date: 11/24/22 Status: Ordered metFORMIN 500 mg oral tablet 0 Refill(s) Start Date: 11/24/22 Status: Ordered metoprolol succinate 50 mg oral capsule, extended release 0 Refill(s) Start Date: 11/24/22 Status: Ordered oxybutynin 10 mg/24 hr oral tablet, extended release 0 Refill(s) Start Date: 11/24/22 Status: Ordered oxyCODONE 5 mg oral tablet 0 Refill(s) Start Date: 11/24/22 Status: Ordered tamsulosin 0.4 mg oral capsule 0 Refill(s) Start Date: 11/24/22 Status: Ordered testosterone cypionate 200 mg/mL intramuscular solution 200 mg = 1 mL, IM, every 2 wk, 0 Refill(s) Start Date: 11/24/22 Status: Ordered traMADol 50 mg oral tablet 0 Refill(s) Start Date: 11/24/22 Status: Ordered Problem List Condition Confirmation Course Effective Dates Status H ealt Status Informant Osteoarthritis of right shoulder Confirmed Active Patient Care team information Care Team Personnel Name: Reed Calderón Position: No Access Member Role: Primary Care Physician Address: Address: [address] [place] [address] Care Team Related Persons Name: AISHA REDDY Address: Home [address] [place] [id number] [place]
--- OUTSIDE RECORDS SUMMARY | 2023-03-19 13:18 | XMS_ITS | Continuity of Care Document ---
Author Name Unknown Organization [facility] Ambulatory Clinics Address [address] [place] [address] Care Team Providers Care Body Masker Name Role Phone Reed Calderón Primary Care Physician Encounter [facility] NBR [id number] Date(s): 11/24/22 - 11/24/22 [facility] Ambulatory Clinics [address] [place], [place] [address] Encounter Diagnosis Osteoarthritis of right shoulder(Discharge Diagnosis) - 11/24/22 Discharge Disposition: Home or Self Care Attending Physician: Alejandro Bryant MD, I Allergies, Adverse Reactions, Alerts Substance Reaction Severity Status penicillin Unknown Active sulfa drugs Unknown Active Keflex Unknown Active Functional Status 11/24/22 Other exposure to Infectious Disease Non e Medications amLODIPine 10 mg oral tablet 10 [...] Condition Confirmation Course Effective Dates Status H ealth Status Informant Osteoarthritis of right shoulder Confirmed Active Vital Signs Most recent to oldest [Reference Range]: 1 Peripheral Pulse Rate [60-100 bpm] 70 bp m (11/24/22 11:17 AM) Blood Pressure [90-140/60-90 mmHg] 132/8 0mmHg (11/24/22 11:17 AM) Weight 106.4 kg (11/24/22 11:17 AM) Weight Measured (lbs) 234.572 lb (11/24/22 11:17 AM) Height 185.42 cm (11/24/22 11:17 AM) Height/Length Measured (inches) 73 inch (11/24/22 11:17 AM) BSA Measured 2.34 m2 (11/24/22 11:17 AM) Body Mass Index 30.95 kg/m2 (11/24/22 11:17 AM) Physician Outpatient Note * Manny HERNANDEZ, Alejandro Rangel: PERFORM Event Display: Office Clinic Note Physician Authored Date: [id number] MANFRED REDDY :1945 Age:77 years Sex:Male Visit Date:11/24/2022 Primary Care Physician: Reed Calderón Chief Complaint RIGHT SHOULDER PAIN History of Present Illness Patient is a 77-year-old gentleman??who in September of this year had a revision knee replacement??done at [facility],??he was having to use crutches around the time of surgery and began to noticepain to his right shoulder. ??Since that time is continued to have significant pain he has difficulty reaching above his head??he has difficulty getting dressed??he notes some crepitus to the shoulder thus far has had no treatment. Physical Exam Vitals & Measurements HR:??70??(Peripheral)?? BP:??132/80?? SpO2:??98%?? HT:??185.42??cm?? WT:??106.4??kg?? BMI:??30.95?? Pain Score:??8?? BSA:??2.34?? Review of studies: X-rays of the patient's right shoulder reviewed and show advanced glenohumeral osteoarthritis ?? Both shoulders are examined. Range of motion of the shoulder is examined in the forward elevation, abduction, external rotation and internal rotation behind the back planes. External rotation is assessed both with the arm in neutral adduction and at 90 degrees of abduction. Similarly internal rotation is performed at 90 degrees of abduction and is compared with the contralateral side. Neer and Merritt impingement signs are examined. Strength is assessed in forward elevation, abduction, externaland internal rotation planes.?Cross-arm adduction test is examined. The shoulder is systematically palpated anteriorlyin the region of the coracoid process, the anterior joint line and bicipital groove. The AC joint is palpated. The greater tuberosity is palpated. The posterior joint line is palpated. Cardozo and active compression tests are performed. The supraspinatus and infraspinatus fossa are examined for signs of atrophy. Stability is test using the apprehension, relocation and Jerk Test. ?? Focused exam of the??shoulder shows patient with about 120 degrees of active elevation,??10 degrees of external rotation, no worse than 4+ out of 5 rotator cuff strength, significant crepitus withrange of motion. Procedure After discussing risk and benefits under sterile conditions I injected the??right glenohumeral joint with 1 cc of triamcinolone and 5 cc lidocaine, patient tolerated this without difficulty Assessment/Plan 1.??Osteoarthritis of right shoulder??M19.011 Ordered: Kenalog-40, 40 mg, Intra-articular, Once, First Dose: 11/24/22 12:07:00 EDT, Stop Date: 11/24/22 12:07:00 EDT, Physician Stop, Routine ?? Patient with advanced glenohumeral osteoarthritis, now given the patient intra- articular injection,??patient want to do this as he is still recovering from his knee replacement but ultimately does want to proceed with a shoulder arthroplasty??so we will have the patient??meet with Dr. Bain in the next few months??to do some planning for this in the future. Problem List/Past Medical History Ongoing Osteoarthritis of right shoulder Historical No qualifying data Medications amLODIPine 10 mg oral tablet, 10 mg= 1 tab, Oral, Daily atorvastatin 20 mg oral tablet, 20 mg= 1 tab, Oral, Daily budesonide 3 mg oral delayed release capsule cyclobenzaprine 5 mg oral tablet finasteride 5 mg oral tablet, 5 mg= 1 tab, Oral, Daily Kenalog-40, 40 mg, Intra-articular, Once levothyroxine 125 mcg (0.125 mg) oral tablet loperamide 2 mg oral capsule, 2 mg= 1 cap, Oral, every 4 hr, PRN metFORMIN 500 mg oral tablet metoprolol succinate 50 mg oral capsule, extended release oxybutynin 10 mg/24 hr oral tablet, extended release oxyCODONE 5 mg oral tablet tamsulosin 0.4 mg oral capsule testosterone cypionate 200 mg/mL intramuscular solution, 200 mg= 1 mL, IM, every 2 wk traMADol 50 mg oral tablet Allergies Keflex penicillin sulfa drugs Electronically Signed on 11/24/22 12:08 PM Alejandro Bryant MD, I Patient Care team information Care Team Personnel Name: Reed Calderón Position: No Access Member Role: Primary Care Physician Address: Address: [address] [place] [id number] [place] [address] Care Team Related Persons Name: AISHA REDDY Address: Home [address] [place] [address] [facility]
--- OUTSIDE RECORDS SUMMARY | 2023-03-19 13:18 | XMS_ITS | Continuity of Care Document ---
Author Name Unknown Organization [facility] Address [address] [place] [address] Care Team Providers Care Cigarette Maker Name Role Phone Omar Calderóncaroline Baumann Primary Care Physician Encounter [facility] NBR [id number] Date(s): 11/24/22 - 11/24/[address] [address]- [place] Discharge Disposition: Home or Self Care Attending Physician: Alejandro Bryant MD, I Admitting Physician: Alejandro Bryant MD, I Referring Physician: Alejandro Bryant MD, I Allergies, Adverse [...] Informant Osteoarthritis of right shoulder Confirmed Active Results Radiology Reports * Exam Date Time Procedure Performing Provider Status 11/24/22 10:49 AM XR Shoulder Complete 2+ Views Right Akhil Joe (Verified) Notes: (XR Shoulder Complete 2+ Views Right) Reason For Exam: right shoulder pain XR Shoulder Complete 2+ Views Right EXAM DESCRIPTION: XR Shoulder Complete 2+ Views Right 11/24/2022 INDICATION: RIGHT SHOULDER PAIN COMPARISON: None IMPRESSION: No acute fracture or dislocation Glenohumeral joint and AC joint osteoarthritic changes with joint space narrowing and osteophyte formation No focal lytic or sclerotic lesion Soft tissue calcifications adjacent to the superolateral aspect of the humeral head suggesting calcific tendinitis JOB #: [id number] Final Signed by: Charles Salazar MD Signed (Electronic Signature): 11/24/2022 10:53 am Patient Care team information Care Team Personnel Name: Reed Calderón Position: No Access Member Role: Primary Care Physician Address: Address: [address] [place] [address] Care Team Related Persons Name: BARRY AISHA Address: Home [address] [place] [address]
== END 2023-03-19 13:17 | disposition home or self-care (01) ==
LOC: NCHCN 13:16
PROVIDERS: PCP Internal Medicine; Visit Provider Internal Medicine
DX: E03.9 Hypothyroidism, unspecified (principal)
CPT/HCPCS: 84443

== ENCOUNTER → 2023-03-26 09:33 | Outpatient (BNVA) | payer MEDICARE, SELFPAY | PROVIDERS: PCP Internal Medicine; Referring Provider Internal Medicine; Visit Provider Surgery | DX: Z12.11 Encounter for screening for malignant neoplasm of colon (principal); Z86.010 Personal history of colon polyps ==

== ENCOUNTER 2023-03-26 14:05 | Outpatient (CLI) | payer MEDICARE, SELFPAY ==
[2023-03-26 12:27] LABS: COMMENT (LAB VIEW ONLY) 54.21 mg/dL; Microalb ug/mg Crea 85.6 ug/mg Cr
[2023-04-03 11:28] LABS: Testosterone, Free 33.1 ng/dL (3.08-11.3); Testosterone, Total 725 ng/dL (240-950)
== END 2023-03-26 14:06 | disposition home or self-care (01) ==
LOC: LBO 14:05
PROVIDERS: PCP Internal Medicine; Visit Provider Internal Medicine
DX: E11.9 Type 2 diabetes mellitus without complications (principal); I10 Essential (primary) hypertension; E03.9 Hypothyroidism, unspecified; M25.511 Pain in right shoulder; N40.1 Benign prostatic hyperplasia with lower urinary tract symptoms; E29.1 Testicular hypofunction
CPT/HCPCS: 36415; 84402; 84403; 84410; 82043; 82570

== ENCOUNTER 2023-04-03 09:43 | Day surgery (SDC) | payer MEDICARE, SELFPAY ==
--- NOTE | 2023-04-02 21:36 | PDOC.DSDIS_ITS ---
Date of service: 04/03/23 Time of Service: 14:47 Discharge Plan Disposition Patient Disposition: Home Condition: Good Discharge Details Reason For Visit: Colonoscopy Attending Provider: Janneth Gómez Primary Care Provider: Reed Calderón Home Meds and New Rx's Prescriptions: Continued finasteride 5 mg tablet 5 mg PO DAILY tramadol 50 mg tablet See Rx Instructions PO Q6H PRN Rx Instructions: 1-2 tabs orally every 6 hours PRN; clindamycin HCl 300 mg capsule See Rx Instructions PO .COMPLEX Rx Instructions: orally; Take 2 capsules 1hr prior to dental procedure, and 1 capsule 4 times a day for a soft tissue infection. atorvastatin 20 mg tablet 20 mg PO DAILY Daily Probiotic (10 Strains) 4 billion cell capsule 1 cap PO DIRECTED ketoconazole 2 % cream 1 applic topical DAILY 90 Days Qty: 60 0RF gentamicin 0.1 % cream 1 applic topical TID Qty: 30 0RF multivitamin 1 EACH tablet 1 ea PO DAILY Loratadine-D 1 EACH tablet extended release 24 hr 1 tab-cap PO DAILY alprazolam [Xanax] 0.5 MG tablet 0.5 mg PO PRN PRN calcium carbonate 600 MG tablet 600 mg PO DAILY tamsulosin 0.4 MG capsule 0.8 mg PO DAILY betamethasone valerate 15 GM cream 15 g Topical PRN PRN levothyroxine 125 MCG tablet 125 mcg PO DAILY ascorbic acid (vitamin C) [Vitamin C] 500 MG capsule, extended release 500 mg PO DAILY zinc 50 MG tablet 50 mg PO DAILY ergocalciferol (vitamin D2) [Vitamin D2] 50,000 UNIT capsule 1 tab-cap PO DAILY testosterone cypionate 200 MG/1 ML oil 200 mg IM UNKNOWN magnesium 200 MG tablet 200 mg PO DAILY glucosamine sulfate 2KCl 1,000 MG tablet 1,000 mg PO BID metoprolol succinate 25 mg tablet extended release 24 hr 50 mg PO BID sildenafil 50 mg Tablet 50 mg PO . NEEDED PRN Rx Instructions: administer 30 minutes to 4 hours before activity senna-docusate sodium Tablet 2 tab PO BID PRN loperamide 2 mg capsule 2 mg PO PRN PRN Patient Comments: Take 1-2 capsule by mouth as needed metformin 500 mg tablet 500 mg PO DAILY melatonin 1 mg tablet extended release 1 mg PO HS cod liver oil Capsule 1 cap PO DAILY Pepto-Bismol 262 mg tablet 1 tab PO PRN PRN diphenoxylate-atropine [Lomotil] 2.5-0.025 mg Tablet 1 tab PO PRN PRN oxybutynin chloride 5 mg tablet extended release 24hr 10 mg PO DAILY Hold Instructions: Home Medication placed on hold at Doctor's office Patient Comments: Take 1 tablet by mouth once a day budesonide 3 mg capsule,delayed,extend.release 3 mg PO DAILY PRN Rx Instructions: Take 3tabs daily until better, then 2 daily for 1 week, 1 tab Qam for 1 week, and then stop. amlodipine 5 mg tablet 10 mg PO DAILY Discontinued polyethylene glycol 3350 17 gram/dose powder 238 g PO ONCE Qty: 238 0RF Rx Instructions: take per colonoscopy instructions bisacodyl [Dulcolax (bisacodyl)] 5 mg tablet,delayed release (DR/EC) 5 mg PO ONCE Qty: 4 0RF Rx Instructions: take per colonoscopy instructions Discharge Instructions Additional Instructions: DSU Colonoscopy Post- Op Instructions Instructions for Everyone who is given Anesthesia: For your safety, please do the following for the next twenty-four (24) hours: *Do Not operate a motor vehicle (car, truck, motorcycle, etc.) *Do Not drink alcoholic beverages or use any recreational drugs for the first 24 hours or while taking pain medications. The medications in your body may have a reaction that can be dangerous. *Do Not make any important decisions or sign any important papers. Findings: Polypx1 Follow up: My office will send you a letter in 2 to 3 weeks time with the results of the pathology and when you should repeat your colonoscopy, probably 3 years time. 1. No lifting over 20 pounds or strenuous activity for the first 24 hours after your procedure. After 24 hours there are no restrictions on your activity but you may feel fatigued for a few days. 2. After you arrive home you may have a light meal and return to your normal diet as you can tolerate it without feeling sick to your stomach. 3. You may have a bloated, gaseous feeling in your belly (abdomen) after a colonoscopy. Passing gas and belching will help. Walking or lying down on your left side with your knees flexed may relieve the discomfort. Call the office at [phone] (Office) or [phone] (Hospital) right away if you notice any of the following: a.Vomiting of blood or ?coffee ground stools?. b.Rectal bleeding 1Tbsp, blood clots or continuous bleeding. c.Severe belly (abdominal) pain. d.A hard distended belly (abdomen) and an inability to pass gas. 4. Please don?t expect to have a normal BM (bowel movement) for 2-3 days after your procedure. 5. If there are questions regarding the findings of your procedure, please contact your doctor 6. If you are unable to contact your doctor with a problem, contact the hospital at [phone]. 7. Continue all your regular medications unless directed otherwise. I understand the above instructions and have no questions. Signature of Patient or Adult Escort Name of Responsible Adult Escort Signature of Nurse Date/Time Activity:: See above Diet:: See above Discharge Orders Discharge Orders: Discharge Order (Routine); Ordered 04/02/23 Ordered By: Janneth Gómez DS: Diagnosis Discharge Diagnosis (1) Villous adenoma of colon: Status: Acute Asessment and Plan: The patient is seen and examined after their colonoscopy.? The patient has been able to pass gas.? They are not having abdominal pain.? They have been able to tolerate liquids and a snack.? They do not have any nausea or vomiting.? They are not having any chest pain or shortness of breath.??? They are not having any rectal bleeding. Their vital signs have been stable-see nursing notes. We discussed findings during their colonoscopy, and any biopsies that were done/polyps that were removed. The patient will be sent a letter with any biopsy results, and when to repeat the colonoscopy.-see discharge instructions. Patient was given explicit instructions to follow-up regarding colonoscopy-refer to discharge instructions.? We reviewed resumption of medications. Patient verbalized understanding and discharged in stable and satisfactory condition- See nursing notes. (2) Diabetes mellitus with neuropathy: Status: Acute (3) Steatosis, liver: Status: Acute (4) Intention tremor: Status: Acute (5) Depression: Status: Chronic (6) Hyperlipidemia: Status: Acute (7) Hypothyroidism: Status: Chronic (8) Psoriasis: Status: Chronic (9) Hypertension: Status: Chronic (10) Type 2 diabetes mellitus: Status: Acute (11) BPH w urinary obs/LUTS: Status: Acute (12) Neuropathy: Status: Acute (13) Paroxysmal a-fib:
--- NOTE | 2023-04-02 21:42 | W.COLOREPORT ---
Date of service: 04/03/23 Time of Service: 14:49 Colonoscopy Report Date of procedure: 04/03/23 Pre-op diagnosis general: Advanced adenomas x4 Post-op diagnosis procedure note: same Surgeon: Janneth Gómez Anesthesia Type: General:No Airway Estimated blood loss (mL): 1 Pathology: other Complications: None Disposition: same day Prep: Miralax/Dulcolax Retraction Time: 18 Procedure Description: After informed consent was obtained the patient was taken to the procedure room and placed in a left decubitous position. Monitors were applied and a time out was done. The patients name, date of , procedure, allergies to medications and metal in their body was reviewed. The patient was then sedated. Once sedated and comfortable a rectal exam was done. External exam was normal. Internal exam revealed a normal sphincter tone and no palpable masses. The prostate without masses. The scope was then introduced and retrofelexed. Grade 2 internal hemorrhoids x3 columns were identified. The scope was then advanced to the cecum without difficulty. The TI and appendiceal orifice were identified. The prep was BBPS 2 in all segments for total of 6. The colon was irrigated with 1.5 L of saline to facilitate visualization. The scope was then slowly retracted over 18 minutes back into the rectum. There are no diverticula or AVMs visualized today. He has a 0.5 cm polyp at 70 cm that is removed with a cold biting forcep. All specimen is retrieved and no bleeding is noted. The scope was removed and the patient was woken up and taken back to Same day surgery in stable condition. The patient tolerated the procedure well and there were no immediate complications. Follow up: The patient should follow up in ~3 years, pathology pending, unless they develop changes in bowel habits or other new gastrointestinal complaints.
[2023-04-03] MEDS: Lactated Ringers 1,000 ML 80 ML IV (10:37)
[2023-04-03 10:42] VITALS: BP 144/85; PULSE 97; RESP 18; TEMP 36.7; O2SAT 98
[2023-04-03] MEDS: Acetaminophen 500 MG TAB 1000 MG PO (12:15)
--- NOTE | 2023-04-03 12:48 | W.ANESPRE ---
General Info Date of Service Date Performed: 04/03/23 Height: 6 ft 2 in Weight: 111 kg Body Mass Index (BMI): 31.4 Surgical Procedure: Operation Date: 04/03/23 11:35 Proposed Procedure Side Surgeon darleen Gómez, Meds Allergies and Home Medications Allergies Allergy/AdvReac Type Severity Reaction Status Date / Time brimonidine [From Combigan] Allergy Severe Verified 04/03/23 10:20 timolol [From Combigan] Allergy Severe Verified 04/03/23 10:20 cephalexin monohydrate Allergy Verified 04/03/23 10:20 [From Keflex] Penicillins Allergy Verified 04/03/23 10:20 Sulfa (Sulfonamide Allergy Verified 04/03/23 10:20 Antibiotics) Tetracyclines Allergy Verified 04/03/23 10:20 Home Medication Medication Instructions Recorded Loratadine-D 10 mg-240 mg 1 tab-cap PO DAILY 08/18/14 tablet,extended release 24 hr (loratadine-pseudoephedrine) Vitamin C 500 mg capsule,extended 500 mg PO DAILY 08/18/14 release (ascorbic acid (vitamin C)) Vitamin D2 1,250 mcg (50,000 unit) 1 tab-cap PO DAILY 08/18/14 capsule (ergocalciferol (vitamin D2)) Xanax 0.5 mg tablet (alprazolam) 0.5 mg PO PRN PRN 08/18/14 betamethasone valerate 0.1 % 15 g topical PRN PRN 08/18/14 topical cream calcium carbonate 600 mg calcium 600 mg PO DAILY 08/18/14 (1,500 mg) tablet glucosamine sulfate 2KCl 1,000 mg 1,000 mg PO BID 08/18/14 tablet levothyroxine 125 mcg tablet 125 mcg PO DAILY 08/18/14 magnesium 200 mg tablet 200 mg PO DAILY 08/18/14 multivitamin 1 ea PO DAILY 08/18/14 tamsulosin 0.4 mg capsule 0.8 mg PO DAILY 08/18/14 testosterone cypionate 200 mg/mL 200 mg IM UNKNOWN 08/18/14 intramuscular oil zinc 50 mg tablet 50 mg PO DAILY 08/18/14 bismuth subsalicylate 262 mg 1 tab PO PRN PRN 06/03/21 tablet (Pepto-Bismol) cod liver oil 1 cap PO DAILY 06/03/21 diphenoxylate-atropine 2.5 1 tab PO PRN PRN 06/03/21 mg-0.025 mg tablet (Lomotil) loperamide 2 mg capsule 2 mg PO PRN PRN 06/03/21 melatonin 1 mg tablet,extended 1 mg PO HS 06/03/21 release metformin 500 mg tablet 500 mg PO DAILY 06/03/21 metoprolol succinate 25 mg 50 mg PO BID 03/23/22 tablet,extended release 24 hr Lactobac 51-Bifidobac 1 cap PO DIRECTED 06/21/22 3-L.lactis-S.thermophilus 4 billion cell capsule (Daily Probiotic (10 Strains)) amlodipine 5 mg tablet 10 mg PO DAILY 06/21/22 atorvastatin 20 mg tablet 20 mg PO DAILY 06/21/22 clindamycin HCl 300 mg capsule See Rx Instructions PO .COMPLEX 06/21/22 finasteride 5 mg tablet 5 mg PO DAILY 06/21/22 oxybutynin chloride 5 mg 10 mg PO DAILY 06/21/22 tablet,extended release 24 hr tramadol 50 mg tablet See Rx Instructions PO Q6H PRN 06/21/22 senna-docusate sodium tablet 2 tab PO BID PRN 12/14/22 sildenafil 50 mg tablet 50 mg PO . NEEDED PRN 12/14/22 ketoconazole 2 % topical cream 1 applic topical DAILY 3 months 02/19/23 #60 grams gentamicin 0.1 % topical cream 1 applic topical TID #30 grams 03/06/23 budesonide 3 mg 3 mg PO DAILY PRN 03/26/23 capsule,delayed,extended release Current Visit Medications: Current Medications Generic Name Dose Route Start Last Admin Trade Name Yolis PRN Reason Stop Dose Admin Hyoscyamine Sulfate 0.125 mg 04/02/23 21:36 Hyoscyamine 0.125 Mg Sl/Oral/Chew SL 05/02/23 21:35 DIRECTED PRN Ringer's Solution 1,000 mls @ 80 mls/hr 04/03/23 06:00 04/03/23 10:37 IV 04/03/23 23:59 80 mls/hr INFUSION ABIGAIL Administration IV Miscellaneous Supplies 1 each 04/03/23 06:00 Iv Access IV 04/03/23 23:59 DIRECTED ABIGAIL Morphine Sulfate 2 mg 04/03/23 12:19 Morphine 4 Mg/Ml Syr IVP 12/28/23 12:18 Q2H PRN PRN Sodium Chloride 0 ml 04/03/23 06:00 Normal Saline Flush 10 Ml Syr IV 04/03/23 23:59 PRN PRN Sodium Chloride 0 ml 04/03/23 06:00 Normal Saline 10 Ml Vial IJ 04/03/23 23:59 DIRECTED PRN Sterile Water 0 ml 04/03/23 06:00 Water,Injection,Sterile 10 Ml Vial IJ 04/03/23 23:59 DIRECTED PRN PFSH Active Problems Active Problems: Problem Status Onset Code Anticoagulant long-term use Z79.01 Villous adenoma of colon D37.4 Cellulitis L03.90 Ingrown toenail L60.0 Onychomycosis B35.1 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 Pain of right calf M79.661 Leg edema, right R60.0 Steatosis, liver K76.0 Intention tremor G25.2 Vitamin D deficiency E55.9 Depression Hyperlipidemia Hypothyroidism Osteoarthritis Psoriasis Hypogonadism in male Hypertension Type 2 diabetes mellitus E11.9 BPH w urinary obs/LUTS N40.1, N13.8 Neuropathy G62.9 Corns and callosities L84 Nail dystrophy L60.3 Medical History Medical History History of atrial fibrillation Paroxysmal a-fib Urinary frequency Medical History Comments:: CANNOT LAY ON RIGHT SIDE-DUE TO SHOULDER PAIN Surgical History Surgical History 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 Tobacco Smoking/Tobacco Use Status: Former Tobacco Use Alcohol Alcohol Intake: current Alcohol intake frequency: 0-2 drinks per day Alcohol type: beer, wine and hard liquor Substance Use Substance use: Never Substance use type: does not use Vital Signs and Lab Results Vital Signs Most Recent Vital Signs in EMR: Most Recent Vital Signs Temp Pulse Resp BP Pulse Ox 36.7 C 97 H 18 144/85 H 98 04/03/23 10:42 04/03/23 10:42 04/03/23 10:42 04/03/23 10:42 04/03/23 10:42 Point of Care Results Point of Care Results: Finger Stick Blood Glucose 167 04/03/23 10:42 Lab Results Blood Type / Crossmatch: No Data to Display Complete Blood Count: No Data to Display Complete Metabolic Panel: No Data to Display Liver Function Panel: No Data to Display Coagulation Panel: No Data to Display Cardiac Panel: No Data to Display Arterial Blood Gas: No Data to Display Venous Blood Gas: No Data to Display Pancreas Panel: No Data to Display Thyroid Panel: Thyroid Stimulating Hormone (TSH) 2.80 uIU/mL (0.36-3.74) 03/19/23 11:00 Infectious Disease: No Data to Display Blood Cultures: No Data to Display Toxicology Panel: No Data to Display Imaging and Studies Imaging and Studies Study information below may be from another EMR and interpreted by another provider. Please see original notes in EMR for more complete details. EKG Summary: 06/03/2021: Exam: Resting ECG Reason for Exam: sob Patient Location: E HR:77 bpm ECG Measurements Heart Rate 77 AXIS AR 183 P 37 QRSd 95 QRS 1 QT 365 T8 QTc 413 Conclusion Sinus rhythm...normal P axis, V-rate 60- 99 I have reviewed and I agree with the emergency room physician's ECG interpretation. Anesthesia Assessment and Plan Anesthesia History Personal History: No History of Anesthesia Complications Family History: No Family History of Anesthesia Complications Exercise Tolerance Exercise Tolerance: Metabolic Equivalents>4 Pertinent Negatives Pertinent Negatives: No Symptoms of GERD, No Major Cardiovascular Symptoms or Complaints (Previous Afib, post ablation, no longer on anticoagulant) and No Major Pulmonary Symptoms or Complaints Cardiac & Pulmonary Exam Cardiac Exam: Normal S1/S2 Heart Sounds Pulmonary Exam: Clear Bilateral Breath Sounds Implantable Cardiac Device Does patient have a Pacemaker or an ICD?: No Airway Exam Known Difficult Airway: No Mallampati Class: 2 Mouth Opening: Normal (> 3cm) Thyromental Distance: Greater than 3 cm Facial Hair: Full Box Neck Range of Motion: Full ROM Neck Circumference: Normal Teeth Condition: Normal Dentition ASA Classification ASA Score: ASA 2 Emergency Case?: No NPO Status NPO Status: NPO Clears >2 hours, Solids >8 hours Anesthesia Plan Resuscitation Status: Full Code Anesthesia Technique: General Anesthesia Airway Planned: Natural Airway Monitors Used: Standard Monitors
[2023-04-03 12:55] VITALS: BMI 31.4
--- NOTE | 2023-04-03 13:38 | NUR.NOTE ---
Addendum entered by Sara Combs RN 04/03/23 14:09: 12:18pm on 04/03/23: Patient's spouse Kae brought to sit with patient in preop area room per patient request. Patient medicated with Tylenol 1000mg PO per orders for right shoulder pain. Patient declined other needs at this time. Original Note: Nursing Note:11:40AM on 04/03/23. This RN completed patient preop tasks and documentation bedside with patient. Patient A&O x 4 sitting up in bed. Patient right arm and shoulder elevated on pillow per patient request for comfort. Patient begins reading his newspaper. Patient requests update on time his colonoscopy procedure will begin. This RN verbally reports procedure schedule has been delayed, however, she will update patient with better time frame for procedure start time as soon as she is able. This RN provided call button to patient for him to request any further needs. This RN informs patient that she is going to assist another patient preop, but she would, check in and follow up with patient periodically. Patient verbalized agreement and continues reading newspapers. 11:50am on 04/03/23: Patient used call button. boiler plant worker and other bar staff answer call button at that time. See boiler plant worker note. 12:17PM /on 04/03/23. Patient updated by this RN that schedule is still delayed. Patient requested to be moved out of stretcher in room. Patient assisted to a recliner chair in room for comfort. 13:45pm on 04/05/23 Patient seen by AIRPORT SHUTTLE DRIVER and bedside prior to procedure. 13:54 on 04/03/23 Patient brought by CLINICAL REHAB LIAISON to procedure room from PreOp area.
--- NOTE | 2023-04-03 14:18 | BOWEL_PTH ---
PATIENT: Vickey Roberts LOC: [facility] U#:[id number] AGE/SX: 77/M ROOM: RE04/03/[address]: Janneth Gómez : 1945 BED: DIS: 04/03/2023 SPEC #: [id number] RECD: 04/03/23 16:06 STATUS: ZHAO RE #: [id number] OLGA: 04/03/23 14:[address]: Janneth Gómez DEPT: Surgical Specimen RECD BY: Natividda Dos Santos ENTERED: 04/03/23 16:06 SP TYPE: Bowel OTHR DR: Reed Calderón Tissues: 1 - BIOPSY BOWEL Procedures: GROSS AND MICRO LEVEL 4 Comments: [id number]
--- NOTE | 2023-04-03 14:46 | W.ANESPOSTOP ---
Postoperative Evaluation Date, Time and Location Date Performed: 04/03/23 Time Performed: 14:46 Patient Location: Day Surgery Unit Vital Signs Most Recent Imported Vital Signs: Most Recent Vital Signs Temp Pulse Resp BP Pulse Ox 36.7 C 97 H 18 144/85 H 98 04/03/23 10:42 04/03/23 10:42 04/03/23 10:42 04/03/23 10:42 04/03/23 10:42 Pain Score Most Recent Pain Score: Most Recent Pain Score Pain Level 0 04/03/23 10:42 Assessment Mental Status: Awake (Alert & Oriented to Patient Baseline) Airway and Respiratory Function: Patent airway with normal (patient baseline) respiratory exam Cardiovascular Function: Hemodynamically Stable Hydration Status: Adequately Hydrated Nausea & Vomiting: No Nausea or Vomiting Pain: Pt. Denies Any Pain Peripheral Nerve Block: Patient did not receive a nerve block
[2023-04-03 14:57] VITALS: BP 117/76; PULSE 87; RESP 18; TEMP 36.7; O2SAT 96
[2023-04-03 15:08] VITALS: BP 128/89; PULSE 89; RESP 16; TEMP 36.6; O2SAT 98
--- NOTE | 2023-04-03 15:21 | NUR.NOTE ---
04/03/23 at 15:20pm Provided verbal and written post colonoscopy instructions to patient and his spouse Kae at bedside Phase II area. Patient and spouse verbalized understanding of all instruction and reported no questions or needs at this time. Patient meets discharge criteria per facility policy. Nursing Note:
--- NOTE | 2023-04-03 15:25 | NUR.NOTE ---
Around 1150 the patient rang his call caraballo, when this RN entered the room, the patient immediately started telling this RN how poor the care was, how he has been waiting for hours with NO information or updates, all in a raised voice with patients in the surrounding bays. This RN listened to the patient and apologized for his wait and discomfort (being NPO, etc.,) and let the patient know that she would get an update from the OR re: current wait time and wondered if there was anything we could do to make the patient more comfortable. The patient ignored this RN's comments and continued to raise his voice at this RN and wave his newspaper and point finger at this RN while verbalizing his dissatisfaction with his pre-op experience indicating that people should not be treated this way, and also reported that he waited for two hours at the general surgical office when he went for his pre-op appointment. Again, this RN reported that she would get an update from the OR and get right back to him, but also assisted the patient to a recliner with a warm blanket with the assistance of Juan C Obrien, ROLAND and Lolita López RN to improve comfort at the patient's request. Pt's spouse brought to room as requested. Call caraballo provided. Upon leaving the room this RN spoke to the surgeon and found out that there would be about one more hour of pre-op wait time. This RN also spoke to Diaz Gauthier, DSU print support specialist who was notified of the situation. Harman Perales immediately came to unit and went to see pt and updated him of the wait time and heard the patient's complaints. This RN also spoke to the primary pre-op RN (Lolita Combs) who reported that she brought the patient in to DSU to pre-op him a few minutes before his scheduled time of 1000 and had him prepped by about 1050. The primary RN updated the patient of the wait delay/wait time around 1137, which the patient did not acknowledge. Despite continued updates (pre-op) from Lolita Combs, being offered various comforts (restroom, warm blanket, etc), the patient continued to tell all staff who entered the room pre-op (Dr. Gómez and Elizabeth Carrera, ECONOMIST RESEARCH ASSISTANT) how awful his experience has been with long wait times and no updates from the staff. Please see Lolita Combs's nurse note for further updates. -BR
== END 2023-04-03 15:40 | disposition home or self-care (01) ==
LOC: SUR 09:43
PROVIDERS: PCP Internal Medicine; Visit Provider Surgery
PROC: 0DJD8ZZ Inspection of Lower Intestinal Tract, Via Natural or Artificial Opening Endoscopic (ICD-10-PCS; CPT 45378; principal; 2023-04-03 11:30)
DX: Z12.11 Encounter for screening for malignant neoplasm of colon (principal); D12.4 Benign neoplasm of descending colon; K64.1 Second degree hemorrhoids; Z86.010 Personal history of colon polyps; E11.40 Type 2 diabetes mellitus with diabetic neuropathy, unspecified; I10 Essential (primary) hypertension
CPT/HCPCS: 45380; 88305

== ENCOUNTER → 2023-06-27 14:11 | Outpatient (BNVA) | payer MEDICARE, SELFPAY | PROVIDERS: PCP Family Medicine; Referring Provider Family Medicine; Visit Provider Nurse Practitioner Gerontology | DX: N40.1 Benign prostatic hyperplasia with lower urinary tract symptoms (principal); N13.8 Other obstructive and reflux uropathy; R33.8 Other retention of urine | CPT/HCPCS: 51798; 99213 ==

== ENCOUNTER → 2023-06-28 14:39 | Outpatient (BNVA) | payer MEDICARE, SELFPAY | PROVIDERS: PCP Family Medicine; Referring Provider Internal Medicine; Visit Provider Podiatrist | DX: R60.0 Localized edema; E11.9 Type 2 diabetes mellitus without complications; N40.1 Benign prostatic hyperplasia with lower urinary tract symptoms; N13.8 Other obstructive and reflux uropathy; G62.9 Polyneuropathy, unspecified; L84 Corns and callosities; L60.3 Nail dystrophy; E11.40 Type 2 diabetes mellitus with diabetic neuropathy, unspecified; B35.1 Tinea unguium; L60.0 Ingrowing nail; L03.032 Cellulitis of left toe | CPT/HCPCS: 11721 ==

== ENCOUNTER 2023-08-06 15:19 | Outpatient (CLI) | payer MEDICARE, SELFPAY ==
[2023-08-06 14:44] LABS: HCT 45.8 % (40.0-50.0); HGB 15.1 g/dL (13.5-17.5); MCH 30.4 pg (27.0-33.0); MCV 92 fL (80-95); MPV 9.6 fL (8.0-11.0); Platelet Count 284 10^3/uL (130-400); RBC 4.96 10^6/uL (4.36-5.78); RDW-SD 44.1 fL
[2023-08-06 16:16] LABS: COMMENT (LAB VIEW ONLY) 197.17 mg/dL
[2023-08-06 16:38] LABS: ALT 73 U/L (16-63); AST 25 U/L (15-37); Albumin 3.9 g/dL (3.4-5.0); Alkaline Phosphatase 109 U/L (46-116); Anion Gap 11.5 mmol/L (3-11); BUN 24 mg/dL (7-18); Bilirubin, Total 0.5 mg/dL (0.2-1.0); CO2 28.5 mmol/L (21.0-32.0); Calcium 9.1 mg/dL (8.5-10.1); Chloride 100 mmol/L (98-107); Estimated GFR 77.52 (mL/min/1.73m2); Glucose 175 mg/dL (74-106); Potassium 4.2 mmol/L (3.5-5.1); Sodium 140 mmol/L (136-145); Total Protein 7.6 g/dL (6.4-8.2)
[2023-08-06 16:39] LABS: Microalb ug/mg Crea 66.5 ug/mg Cr
== END 2023-08-06 15:20 | disposition home or self-care (01) ==
PROVIDERS: PCP Family Medicine; Visit Provider Family Medicine
DX: E11.9 Type 2 diabetes mellitus without complications (principal)
CPT/HCPCS: 36415; 80053; 85027; 82043; 82570

== ENCOUNTER → 2023-11-01 10:21 | Outpatient (BNVA) | payer MEDICARE, SELFPAY | PROVIDERS: PCP Family Medicine; Referring Provider Family Medicine; Visit Provider Podiatrist | DX: I73.89 Other specified peripheral vascular diseases (principal); L60.0 Ingrowing nail; B35.1 Tinea unguium; E11.40 Type 2 diabetes mellitus with diabetic neuropathy, unspecified; L84 Corns and callosities; L60.3 Nail dystrophy; M92.61 Juvenile osteochondrosis of tarsus, right ankle; M79.674 Pain in right toe(s); M79.675 Pain in left toe(s) | CPT/HCPCS: 11721 ==

== ENCOUNTER → 2023-12-18 13:57 | Outpatient (BNVA) | payer MEDICARE, SELFPAY | PROVIDERS: PCP Family Medicine; Visit Provider Nurse Practitioner Gerontology ==

== ENCOUNTER 2023-12-18 17:07 | Outpatient (CLI) | payer MEDICARE, SELFPAY ==
[2023-12-18 22:38] LABS: PSA, Diagnostic 0.7 ng/mL (<=6.5)
== END 2023-12-18 17:08 | disposition home or self-care (01) ==
LOC: LBO 17:07
PROVIDERS: PCP Family Medicine; Visit Provider Nurse Practitioner Gerontology
DX: N40.1 Benign prostatic hyperplasia with lower urinary tract symptoms (principal); N13.8 Other obstructive and reflux uropathy
CPT/HCPCS: 36415; 51798; 99213; 84153

== ENCOUNTER → 2024-03-06 10:26 | Outpatient (BNVA) | payer MEDICARE, SELFPAY | PROVIDERS: PCP Family Medicine; Referring Provider Family Medicine; Visit Provider Podiatrist | DX: L60.3 Nail dystrophy (principal); B35.1 Tinea unguium; E11.40 Type 2 diabetes mellitus with diabetic neuropathy, unspecified; L84 Corns and callosities; L60.0 Ingrowing nail; M92.61 Juvenile osteochondrosis of tarsus, right ankle; Z86.79 Personal history of other diseases of the circulatory system; I73.89 Other specified peripheral vascular diseases; R20.8 Other disturbances of skin sensation | CPT/HCPCS: 11055; 11719 ==

== ENCOUNTER 2024-04-28 13:47 | Outpatient (REF) | payer MEDICARE, SELFPAY ==
[2024-04-28 15:13] LABS: COMMENT (LAB VIEW ONLY) 101.11 mg/dL
[2024-04-28 15:18] LABS: Microalb ug/mg Crea 152.8 ug/mg Cr
== END 2024-04-28 13:48 | disposition home or self-care (01) ==
LOC: NCHCN 13:47
PROVIDERS: PCP Family Medicine; Visit Provider Family Medicine
DX: E11.9 Type 2 diabetes mellitus without complications (principal)
CPT/HCPCS: 82043; 82570

== ENCOUNTER 2024-05-29 16:53 | Emergency (ER) | payer MEDICARE, SELFPAY ==
[2024-05-29] VITALS (13 sets, daily range): BP systolic 125–166; BP diastolic 70–92; PULSE 83–97; RESP 16–23; TEMP 36.3; O2SAT 92–94
--- NOTE | 2024-05-29 16:45 | RT.EKG_ITS ---
APPROVED REPORT Exam: Resting ECG Reason for Exam: Patient Location: E HR:89 bpm ECG Measurements Heart Rate 89 AXIS MD 179 P 35 QRSd 92 QRS 73 QT 363 T 34 QTc 443 Conclusion Sinus rhythm, rate 89 No interval abnormalities No STEMI PVC No significant changes from priors
--- NOTE | 2024-05-29 17:15 | DI.RAD_ITS ---
Exam(s) XR CHEST 2V PA LATERAL EXAM: XR CHEST 2V PA LATERAL CLINICAL HISTORY: Productive cough with CP TECHNIQUE: 2D digital imaging was performed. Two views. COMPARISON: No exams were available for comparison FINDINGS: HEART: Normal size. Aorta: Not dilated. PULMONARY VASCULATURE: Normal. MEDIASTINUM: Unremarkable. LUNGS: Clear. PLEURAL SPACE: No pleural effusion or pneumothorax. BONE:Right shoulder prosthesis. SOFT TISSUES: Unremarkable. IMPRESSION: No acute abnormality. DATA REPOSITORY: RADIATION DOSE DELIVERED:
[2024-05-29 17:47] LABS: Abs Immature Grans 0.04 10^3/uL (0.0-0.06); Absolute Basophil Count 0.03 10^3/uL (0.0-0.2); Absolute Eosinophil Count 0.27 10^3/uL (0.0-0.7); Absolute Lymphocyte Count 1.11 10^3/uL (1.2-3.4); Absolute Monocyte Count 1.08 10^3/uL (0.1-0.8); Absolute Neutrophil Count 3.84 10^3/uL (1.2-6.7); Basophils % 0.5 %; Eosinophils % 4.2 %; HCT 46.1 % (40.0-50.0); HGB 15.6 g/dL (13.5-17.5); Immature Grans % 0.6 %; Lymphocytes % 17.4 %; MCH 30.9 pg (27.0-33.0); MCHC 33.8 % (32.0-36.0); MCV 91 fL (80-95); MPV 9.7 fL (8.0-11.0); Neutrophils % 60.3 %; Platelet Count 256 10^3/uL (130-400); RBC 5.05 10^6/uL (4.36-5.78); RDW 12.3 % (11.8-14.1); RDW-SD 41.1 fL; WBC 6.37 10^3/uL (4.4-10.8)
[2024-05-29 17:48] LABS: COVID-19 PCR Negative (Negative); Influenza A PCR Negative (Negative); Influenza B PCR Negative (Negative); RSV PCR Negative (Negative)
[2024-05-29 17:49] LABS: Source Nasopharynx
--- NOTE | 2024-05-29 17:52 | ED.GENADUL_ITS ---
Discharge Plan Disposition Patient Disposition: Home Condition: Stable Discharge Details Clinical Impression: Viral upper respiratory illness, Hypertension, Type 2 diabetes mellitus, Hyperlipidemia, Hypothyroidism Primary Care Provider: Yonny Finley ED Provider: Angi Howell Home Meds and New Rx's Prescriptions: New benzonatate 100 mg capsule 100 mg PO TID PRNQty: 10 0RF No Action finasteride 5 mg tablet 5 mg PO DAILY clindamycin HCl 300 mg capsule See Rx Instructions PO .COMPLEX Rx Instructions: orally; Take 2 capsules 1hr prior to dental procedure, and 1 capsule 4 times a day for a soft tissue infection. atorvastatin 20 mg tablet 20 mg PO DAILY acetaminophen 500 mg capsule 1,000 mg PO Q6H gentamicin 0.1 % cream 1 applic topical TID Qty: 30 0RF multivitamin Tablet 1 tab PO DAILY Loratadine-D 1 EACH tablet extended release 24 hr 1 tab-cap PO DAILY calcium carbonate 600 MG tablet 600 mg PO DAILY tamsulosin 0.4 MG capsule 0.8 mg PO DAILY betamethasone valerate 15 GM cream 15 g Topical PRN PRN levothyroxine 125 MCG tablet 125 mcg PO DAILY zinc 50 MG tablet 50 mg PO DAILY testosterone cypionate 200 MG/1 ML oil 200 mg IM .q 2 week glucosamine sulfate 2KCl 1,000 MG tablet 1,000 mg PO BID metoprolol succinate 25 mg tablet extended release 24 hr 50 mg PO BID sildenafil 50 mg Tablet 50 mg PO . NEEDED PRN Rx Instructions: administer 30 minutes to 4 hours before activity senna-docusate sodium Tablet 2 tab PO BID PRN oxybutynin chloride 5 mg tablet extended release 24hr 5 mg PO DAILY Qty: 90 3RF Fish Oil 60-90-500 mg capsule,delayed release(DR/EC) 1 cap PO DAILY Probiotic Gold Acidophilus 1 billion cell capsule 1,000 mmu cells PO DAILY ketoconazole 2 % cream 1 applic topical DAILY Qty: 60 3RF Rx Instructions: Apply to toenails once daily loperamide 2 mg capsule 2 mg PO PRN PRN Patient Comments: Take 1-2 capsule by mouth as needed melatonin 1 mg tablet extended release 1 mg PO HS diphenoxylate-atropine [Lomotil] 2.5-0.025 mg Tablet 1 tab PO PRN PRN budesonide 3 mg capsule,delayed,extend.release 3 mg PO DAILY PRN Rx Instructions: Take 3tabs daily until better, then 2 daily for 1 week, 1 tab Qam for 1 week, and then stop. metformin 500 mg tablet 500 mg PO BID amlodipine 5 mg tablet 10 mg PO DAILY Discharge Instructions Instructions: Upper respiratory infection in adults - Discharge instructions Additional Instructions: You were seen in the emergency department today for evaluation of cough, body aches, and trouble breathing. Your workup was most concerning for a viral upper respiratory infection, though you did test negative for COVID, influenza, and RSV. You had a chest x-ray that did not show any sign of pneumonia, and had otherwise reassuring laboratory studies. You are provided with a prescription for Tessalon Perles as well as an albuterol inhaler to use if you experience wheezing. Please follow-up with your primary care provider in the next few days to discuss this visit and any symptoms that change, worsen, or persist. Thank you for allowing us to be part of your care. HPI General Mode of arrival: ambulatory . Date/Time Provider Initiated Documentation: 05/29/24 17:09 . Limitations to Documentation: no limitations . Information obtained by: patient, family and old records reviewed . HPI Narrative: HPI: This is a 78-year-old male patient with a past medical history significant for hyperlipidemia, hypothyroidism, hypertension, and diabetes who is presenting for evaluation of upper respiratory symptoms and cough. The patient was on vacation on a cruise, states that he began experiencing runny nose and postnasal drip, which has gradually worsened. He started to experience chills, body aches, and a cough productive of green and white sputum. States that his chest hurts when he coughs, does not have chest pain at rest. Has been using Tylenol and Mucinex for management of his symptoms. Patient states that he called his primary care today and they advised him to seek care in the emergency department for evaluation. The patient reports that he has no personal history of cardiac disease, denies a history of thromboembolic disease. He states that he has difficulty laying flat due to his breathing and has been sleeping in a recliner. No swelling or calf tenderness reported, though he does note that he abraded the posterior aspect of his left ankle on the door while carrying firewood. Exam: Gen: Awake and alert, in no apparent distress HEENT: Non-icteric sclera, TMs clear bilaterally, external ears normal. Neck: Supple Lungs: No apparent respiratory distress, normal respiratory effort. Lung sounds largely clear and equal though I do note some crackles in the left base, and a junky sounding cough is appreciated during this provider's examination. CV: Appears well perfused, heart with regular rate and rhythm Abdomen: Non-distended, soft, nontender MSK: Moves 4 extremities without apparent limitation in ROM. No unilateral calf swelling or tenderness Skin: Visualized skin without rashes, cyanosis. Abrasion appreciated to the pos terior aspect of the left ankle, without surrounding induration, redness, or warmth. Neuro: Normal Gait, no obvious focal deficits or facial asymmetry. Speaks in full, clear sentences. Psych: Appropriate for situation. MDM: This is a 78-year-old male patient presenting for evaluation of shortness of breath, body aches, and cough. Differential includes but is not limited to pneumonia, URI, bronchitis, and I certainly considered heart failure, COPD exacerbation, pneumothorax though the patient has no history of same no physical exam findings to strongly suggest these. I did consider pulmonary embolism given the recent travel, this would be less typical of this patient's infectious sounding history, and he has no evidence for DVT, tachycardia, or hypoxia. Considered metabolic and electrolyte derangements, kidney injury, liver disease, ACS. We will obtain an EKG, chest x-ray, and laboratory studies to include CBC, CMP, magnesium, troponin, and BNP. ED Course: EKG reviewed by myself, showing a normal sinus rhythm without evidence of ischemia, interval abnormality, patient did have a PVC. I independently interpreted the laboratory studies, which show no significant leukocytosis, anemia, or thrombocytopenia. The chemistry panel is without evidence of electrolyte abnormality other than mild hypomagnesemia, kidney dysfunction, or liver injury. COVID and influenza testing was negative, troponin negative, BNP low. I independently interpreted the patient's chest x-ray, which does not show any abnormalities to explain his symptoms such as infiltrate or edema. I shared these findings with the patient, and he is likely experiencing a viral upper respiratory infection. I did have a decision-making conversation with the patient regarding workup for pulmonary embolism, though the patient has remained without hypoxia or tachycardia during his time in the emergency department. The patient does not wish to undergo any further laboratory or imaging studies and I feel that this is reasonable given that his symptoms are infectious seeming. I did provide him with an albuterol inhaler for his reported wheezing at home, as well as a short course of Tessalon Perles for cough. At this time, the patient has had a full medical evaluation and is safe for discharge to home. They are hemodynamically stable, ambulatory, and tolerating PO. They are understanding of the follow-up plan and return precautions. They left our facility without incident. Angi Howell MD Related Data Home Medications ?Medication ?Instructions ?Recorded ?Confirmed Loratadine-D 10 mg-240 mg 1 tab-cap PO DAILY 08/18/14 05/29/24 tablet,extended release 24 hr (loratadine-pseudoephedrine) betamethasone valerate 0.1 % 15 g topical PRN PRN 08/18/14 05/29/24 topical cream calcium carbonate 600 mg PO DAILY 08/18/14 05/29/24 glucosamine sulfate 2KCl 1,000 mg 1,000 mg PO BID 08/18/14 05/29/24 tablet levothyroxine 125 mcg tablet 125 mcg PO DAILY 08/18/14 05/29/24 tamsulosin 0.4 mg capsule 0.8 mg PO DAILY 08/18/14 05/29/24 testosterone cypionate 200 mg/mL 200 mg IM .q 2 week 08/18/14 05/29/24 intramuscular oil zinc 50 mg tablet 50 mg PO DAILY 08/18/14 05/29/24 diphenoxylate-atropine 2.5 1 tab PO PRN PRN 06/03/21 05/29/24 mg-0.025 mg tablet (Lomotil) loperamide 2 mg capsule 2 mg PO PRN PRN 06/03/21 05/29/24 melatonin 1 mg tablet,extended 1 mg PO HS 06/03/21 05/29/24 release metoprolol succinate 25 mg 50 mg PO BID 03/23/22 05/29/24 tablet,extended release 24 hr amlodipine 5 mg tablet 10 mg PO DAILY 06/21/22 05/29/24 atorvastatin 20 mg tablet 20 mg PO DAILY 06/21/22 05/29/24 clindamycin HCl 300 mg capsule See Rx Instructions PO .COMPLEX 06/21/22 05/29/24 finasteride 5 mg tablet 5 mg PO DAILY 06/21/22 05/29/24 senna-docusate sodium tablet 2 tab PO BID PRN 12/14/22 05/29/24 sildenafil 50 mg tablet 50 mg PO . NEEDED PRN 12/14/22 05/29/24 gentamicin 0.1 % topical cream 1 applic topical TID #30 grams 03/06/23 05/29/24 budesonide 3 mg 3 mg PO DAILY PRN 03/26/23 05/29/24 capsule,delayed,extended release oxybutynin chloride 5 mg 5 mg PO DAILY #90 tabs 05/16/23 05/29/24 tablet,extended release 24 hr acetaminophen 500 mg capsule 1,000 mg PO Q6H 06/27/23 05/29/24 Lactobacillus acidophilus 1 1,000 mmu cells PO DAILY 07/18/23 05/29/24 billion cell capsule (Probiotic Gold Acidophilus) omega 3-dha 60 mg-epa 90 mg-fish 1 cap PO DAILY 07/18/23 05/29/24 oil 500 mg capsule, delayed release (Fish Oil) metformin 500 mg tablet 500 mg PO BID 02/29/24 05/29/24 multivitamin 1 tab PO DAILY 02/29/24 05/29/24 ketoconazole 2 % topical cream 1 applic topical DAILY #60 grams 03/12/24 05/29/24 benzonatate 100 mg capsule 100 mg PO TID PRN #10 caps 05/29/24 Previous Rx's ?Medication ?Instructions ?Recorded gentamicin 0.1 % topical cream 1 applic topical TID #30 grams 03/06/23 oxybutynin chloride 5 mg 5 mg PO DAILY #90 tabs 05/16/23 tablet,extended release 24 hr ketoconazole 2 % topical cream 1 applic topical DAILY #60 grams 03/12/24 benzonatate 100 mg capsule 100 mg PO TID PRN #10 caps 05/29/24 Allergies Allergy/AdvReac Type Severity Reaction Status Date / Time brimonidine (From Combigan) Allergy Severe elevated BP Verified 05/29/24 17:07 timolol (From Combigan) Allergy Severe Elevated BP Verified 05/29/24 17:07 cephalexin monohydrate (From Allergy GI symptoms Verified 05/29/24 17:07 Keflex) Penicillins Allergy GI symptoms Verified 05/29/24 17:07 Sulfa (Sulfonamide Allergy GI symptoms Verified 05/29/24 17:07 Antibiotics) Tetracyclines Allergy GI symptoms Verified 05/29/24 17:07 General Stated Complaint: Chest Pain KIRBY: 3 Course Vital Signs Vital signs: Vital Signs Temperature 36.3 C L 05/29/24 16:58 Pulse 97 H 05/29/24 16:58 Respiratory Rate 20 05/29/24 16:58 Blood Pressure 166/81 H 05/29/24 16:58 Pulse Oximetry 93 05/29/24 16:58 Temperature 36.3 C L 05/29/24 16:58 Temperature Source Oral 05/29/24 16:58 Pulse 97 H 05/29/24 16:58 Respiratory Rate 18 05/29/24 17:21 Respiratory Effort Normal, Non-Labored 05/29/24 17:21 Respiratory Depth Normal 05/29/24 17:21 Respiratory Pattern Normal 05/29/24 17:21 Blood Pressure 166/81 H 05/29/24 16:58 Blood Pressure Position Sitting 05/29/24 16:58 Pulse Oximetry 93 05/29/24 16:58 Oxygen Delivery Method Room Air 05/29/24 16:58 Oxygen Flow Rate 0 05/29/24 16:58 Pain Level 8 05/29/24 16:58 Lab/Test Results Lab/Test Results: Laboratory Tests Range/Units 05/29/24 05/29/24 05/29/24 17:02 17:24 17:35 WBC (4.4-10.8) 10^3/uL 6.37 RBC (4.36-5.78) 10^6/uL 5.05 Hgb (13.5-17.5) g/dL 15.6 Hct (40.0-50.0) % 46.1 MCV (80-95) fL 91 MCH (27.0-33.0) pg 30.9 MCHC (32.0-36.0) % 33.8 RDW (11.8-14.1) % 12.3 Plt Count (130-400) 10^3/uL 256 MPV (8.0-11.0) fL 9.7 Immature Gran % % 0.6 Neutrophils % % 60.3 Lymphocytes % % 17.4 Monocytes % % 17.0 Eosinophils % % 4.2 Basophils % % 0.5 Nucleated RBC % (0.0-0.3) % 0.0 Absolute Neutrophils (1.2-6.7) 10^3/uL 3.84 Absolute Lymphocytes (1.2-3.4) 10^3/uL 1.11 L Absolute Monocytes (0.1-0.8) 10^3/uL 1.08 H Absolute Eosinophils (0.0-0.7) 10^3/uL 0.27 Absolute Basophils (0.0-0.2) 10^3/uL 0.03 COVID-19 Source Nasopharynx Cancelled SARS-CoV-2 (PCR) (Negative) Negative Cancelled Influenza Type A (PCR) (Negative) Negative Cancelled Influenza Type B (PCR) (Negative) Negative Cancelled RSV (PCR) (Negative) Negative Cancelled Medical Decision Making Quality:SDOH Health Related Social Needs: No Data to Display PFSH All Active Problems (Updated 05/29/24 @ 18:39 by Angi Howell MD) Viral upper respiratory illness (Acute) Breezy's deformity of right heel (Acute) Tubular adenoma of colon (Acute ~04/03/23) Cellulitis (Acute) Ingrown toenail (Acute) Onychomycosis (Acute) Diabetes mellitus with neuropathy (Acute) Pain of right calf (Acute) Leg edema, right (Acute) Steatosis, liver (Acute) Intention tremor (Acute) Vitamin D deficiency (Acute) Depression (Chronic) Hyperlipidemia (Acute) Hypothyroidism (Chronic) Osteoarthritis (Chronic) Psoriasis (Chronic) Hypogonadism in male (Acute) Hypertension (Chronic) Type 2 diabetes mellitus (Acute) BPH w urinary obs/LUTS (Acute) Neuropathy (Acute) Corns and callosities (Acute) Nail dystrophy (Acute) Medical History Villous adenoma of colon x4 2021 at [facility] History of atrial fibrillation Paroxysmal a-fib Urinary frequency Surgical History History of colonoscopy (~03/2023) path sent 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
[2024-05-29 18:09] LABS: ALT 52 U/L (16-63); AST 21 U/L (15-37); Albumin 3.7 g/dL (3.4-5.0); Alkaline Phosphatase 111 U/L (46-116); Anion Gap 8.4 mmol/L (3-11); BUN 16 mg/dL (7-18); Bilirubin, Total 0.71 mg/dL (0.2-1.0); CO2 28.6 mmol/L (21.0-32.0); Calcium 8.8 mg/dL (8.5-10.1); Chloride 98 mmol/L (98-107); Estimated GFR 77.52 (mL/min/1.73m2); Glucose 191 mg/dL (74-106); Magnesium 1.6 mg/dL (1.8-2.4); NT-proBNP 19 pg/mL (<300); Potassium 3.9 mmol/L (3.5-5.1); Sodium 135 mmol/L (136-145); Total Protein 7.6 g/dL (6.4-8.2); Troponin I 10 ng/L (<or=76)
[2024-05-29] MEDS: Benzonatate 100 MG CAP PO ×3 (18:46→18:59)
[2024-05-29] MEDS: Albuterol HFA 8 GM 60 PUFF INH IH (18:46)
[2024-05-29] MEDS: Inhaler, Assist Device 1 EACH MC (18:57)
== END 2024-05-29 18:58 | disposition home or self-care (01) ==
PROVIDERS: Emergency Provider Emergency Medicine; PCP Family Medicine
DX: J06.9 Acute upper respiratory infection, unspecified (principal); I10 Essential (primary) hypertension; E11.40 Type 2 diabetes mellitus with diabetic neuropathy, unspecified; E78.5 Hyperlipidemia, unspecified; E03.9 Hypothyroidism, unspecified; Z79.84 Long term (current) use of oral hypoglycemic drugs; Z87.891 Personal history of nicotine dependence
CPT/HCPCS: 80053; 87637; 93005; 99284; 71046; 83735; 83880; 84484; 85025; 93010

== ENCOUNTER 2024-06-23 15:57 | Emergency (ER) | payer MEDICARE, SELFPAY ==
[2024-06-23 15:58] VITALS: BP 148/90; PULSE 94; RESP 18; TEMP 36.6; O2SAT 94
--- NOTE | 2024-06-23 19:21 | ED.GENADUL_ITS ---
Discharge Plan Disposition Patient Disposition: Home Condition: Stable Discharge Details Clinical Impression: Laceration of leg, Cellulitis Primary Care Provider: Yonny Finley ED Provider: Natividad Fajardo Home Meds and New Rx's Prescriptions: New clindamycin HCl [Cleocin HCl] 150 mg capsule 450 mg PO TID Qty: 90 0RF mupirocin 2 % ointment 1 applic topical TID Qty: 22 0RF Continued finasteride 5 mg tablet 5 mg PO DAILY clindamycin HCl 300 mg capsule See Rx Instructions PO .COMPLEX Rx Instructions: orally; Take 2 capsules 1hr prior to dental procedure, and 1 capsule 4 times a day for a soft tissue infection. atorvastatin 20 mg tablet 20 mg PO DAILY acetaminophen 500 mg capsule 1,000 mg PO Q6H gentamicin 0.1 % cream 1 applic topical TID Qty: 30 0RF multivitamin Tablet 1 tab PO DAILY Loratadine-D 1 EACH tablet extended release 24 hr 1 tab-cap PO DAILY calcium carbonate 600 MG tablet 600 mg PO DAILY tamsulosin 0.4 MG capsule 0.8 mg PO DAILY betamethasone valerate 15 GM cream 15 g Topical PRN PRN levothyroxine 125 MCG tablet 125 mcg PO DAILY zinc 50 MG tablet 50 mg PO DAILY testosterone cypionate 200 MG/1 ML oil 200 mg IM .q 2 week glucosamine sulfate 2KCl 1,000 MG tablet 1,000 mg PO BID metoprolol succinate 25 mg tablet extended release 24 hr 50 mg PO BID sildenafil 50 mg Tablet 50 mg PO . NEEDED PRN Rx Instructions: administer 30 minutes to 4 hours before activity senna-docusate sodium Tablet 2 tab PO BID PRN oxybutynin chloride 5 mg tablet extended release 24hr 5 mg PO DAILY Qty: 90 3RF Fish Oil 60-90-500 mg capsule,delayed release(DR/EC) 1 cap PO DAILY Probiotic Gold Acidophilus 1 billion cell capsule 1,000 mmu cells PO DAILY ketoconazole 2 % cream 1 applic topical DAILY Qty: 60 3RF Rx Instructions: Apply to toenails once daily loperamide 2 mg capsule 2 mg PO PRN PRN Patient Comments: Take 1-2 capsule by mouth as needed melatonin 1 mg tablet extended release 1 mg PO HS diphenoxylate-atropine [Lomotil] 2.5-0.025 mg Tablet 1 tab PO PRN PRN budesonide 3 mg capsule,delayed,extend.release 3 mg PO DAILY PRN Rx Instructions: Take 3tabs daily until better, then 2 daily for 1 week, 1 tab Qam for 1 week, and then stop. metformin 500 mg tablet 500 mg PO BID amlodipine 5 mg tablet 10 mg PO DAILY benzonatate 100 mg capsule 100 mg PO TID PRNQty: 10 0RF Discharge Instructions Instructions: Cellulitis (Skin Infection), Adult ED Additional Instructions: take 450 mg of clindamycin three times daily for 10 days elevate your leg as much as possible apply warm compresses three times daily wash with soap and water 3 times daily and apply mupirocin light layer, thereafter recheck in 48 hours return with spreading redness, fever, worsening pain Referrals: Yonny Finley MD [Primary Care Provider] - 2 days Discharge Data Discharge Date/Time-TO BE ENTERED AT DEPARTURE: 06/23/24 16:58 HPI General Date/Time Provider Initiated Documentation: 06/23/24 16:01 . HPI Narrative: The patient is a 79-year-old male who presents with a report of a fall in the basement approximately 5 days prior to arrival. He landed on his leg and received a laceration. Two days ago, he developed some redness and swelling. He has a history of diabetes but does not check his blood sugars regularly. He did start taking his clindamycin 300 mg twice a day, which he had at home secondary to multiple joint replacements. He has been taking clindamycin 2 times daily for 2 days. He does not report any fever or chills. Related Data Home Medications ?Medication ?Instructions ?Recorded ?Confirmed Loratadine-D 10 mg-240 mg 1 tab-cap PO DAILY 08/18/14 06/23/24 tablet,extended release 24 hr (loratadine-pseudoephedrine) betamethasone valerate 0.1 % 15 g topical PRN PRN 08/18/14 06/23/24 topical cream calcium carbonate 600 mg PO DAILY 08/18/14 06/23/24 glucosamine sulfate 2KCl 1,000 mg 1,000 mg PO BID 08/18/14 06/23/24 tablet levothyroxine 125 mcg tablet 125 mcg PO DAILY 08/18/14 06/23/24 tamsulosin 0.4 mg capsule 0.8 mg PO DAILY 08/18/14 06/23/24 testosterone cypionate 200 mg/mL 200 mg IM .q 2 week 08/18/14 06/23/24 intramuscular oil zinc 50 mg tablet 50 mg PO DAILY 08/18/14 06/23/24 diphenoxylate-atropine 2.5 1 tab PO PRN PRN 06/03/21 06/23/24 mg-0.025 mg tablet (Lomotil) loperamide 2 mg capsule 2 mg PO PRN PRN 06/03/21 06/23/24 melatonin 1 mg tablet,extended 1 mg PO HS 06/03/21 06/23/24 release metoprolol succinate 25 mg 50 mg PO BID 03/23/22 06/23/24 tablet,extended release 24 hr amlodipine 5 mg tablet 10 mg PO DAILY 06/21/22 06/23/24 atorvastatin 20 mg tablet 20 mg PO DAILY 06/21/22 06/23/24 clindamycin HCl 300 mg capsule See Rx Instructions PO .COMPLEX 06/21/22 06/23/24 finasteride 5 mg tablet 5 mg PO DAILY 06/21/22 06/23/24 senna-docusate sodium tablet 2 tab PO BID PRN 12/14/22 06/23/24 sildenafil 50 mg tablet 50 mg PO . NEEDED PRN 12/14/22 06/23/24 gentamicin 0.1 % topical cream 1 applic topical TID #30 grams 03/06/23 06/23/24 budesonide 3 mg 3 mg PO DAILY PRN 03/26/23 06/23/24 capsule,delayed,extended release oxybutynin chloride 5 mg 5 mg PO DAILY #90 tabs 05/16/23 06/23/24 tablet,extended release 24 hr acetaminophen 500 mg capsule 1,000 mg PO Q6H 06/27/23 06/23/24 Lactobacillus acidophilus 1 1,000 mmu cells PO DAILY 07/18/23 06/23/24 billion cell capsule (Probiotic Gold Acidophilus) omega 3-dha 60 mg-epa 90 mg-fish 1 cap PO DAILY 07/18/23 06/23/24 oil 500 mg capsule, delayed release (Fish Oil) metformin 500 mg tablet 500 mg PO BID 02/29/24 06/23/24 multivitamin 1 tab PO DAILY 02/29/24 06/23/24 ketoconazole 2 % topical cream 1 applic topical DAILY #60 grams 03/12/24 06/23/24 benzonatate 100 mg capsule 100 mg PO TID PRN #10 caps 05/29/24 06/23/24 clindamycin HCl 150 mg capsule 450 mg (3 x 150 mg) PO TID #90 caps 06/23/24 (Cleocin HCl) mupirocin 2 % topical ointment 1 applic topical TID #22 grams 06/23/24 Previous Rx's ?Medication ?Instructions ?Recorded gentamicin 0.1 % topical cream 1 applic topical TID #30 grams 03/06/23 oxybutynin chloride 5 mg 5 mg PO DAILY #90 tabs 05/16/23 tablet,extended release 24 hr ketoconazole 2 % topical cream 1 applic topical DAILY #60 grams 03/12/24 benzonatate 100 mg capsule 100 mg PO TID PRN #10 caps 05/29/24 clindamycin HCl 150 mg capsule 450 mg (3 x 150 mg) PO TID #90 caps 06/23/24 (Cleocin HCl) mupirocin 2 % topical ointment 1 applic topical TID #22 grams 06/23/24 Allergies Allergy/AdvReac Type Severity Reaction Status Date / Time brimonidine (From Combigan) Allergy Severe elevated BP Verified 06/23/24 16:05 timolol (From Combigan) Allergy Severe Elevated BP Verified 06/23/24 16:05 cephalexin monohydrate (From Allergy GI symptoms Verified 06/23/24 16:05 Keflex) Penicillins Allergy GI symptoms Verified 06/23/24 16:05 Sulfa (Sulfonamide Allergy GI symptoms Verified 06/23/24 16:05 Antibiotics) Tetracyclines Allergy GI symptoms Verified 06/23/24 16:05 General Stated Complaint: Cellulitis KIRBY: 3 Exam Narrative Exam Narrative: General Appearance: The patient is alert and oriented, not in acute distress. Vital signs: Within normal limits. HEENT: Within normal limits. Respiratory: Within normal limits. Cardiovascular: Sinus rhythm. Lymphatic: No lymphangitis. Back, Musculoskeletal: No crepitus. Extremities: The left leg shows an approximately 6-inch region of erythema with a central laceration. The patient is ambulatory with a steady gait. Skin: [List findings, if not mentioned put Warm and dry, no rash.] Neurological: Neurovascularly intact. Psychiatric: [List findings, if not mentioned delete the row]. Course Vital Signs Vital signs: Vital Signs Temperature 36.6 C 06/23/24 15:58 Pulse 94 H 06/23/24 15:58 Respiratory Rate 18 06/23/24 15:58 Blood Pressure 148/90 H 06/23/24 15:58 Pulse Oximetry 94 06/23/24 15:58 Temperature 36.6 C 06/23/24 15:58 Temperature Source Oral 06/23/24 15:58 Pulse 94 H 06/23/24 15:58 Respiratory Rate 18 06/23/24 15:58 Blood Pressure 148/90 H 06/23/24 15:58 Blood Pressure Position Sitting 06/23/24 15:58 Pulse Oximetry 94 06/23/24 15:58 Oxygen Delivery Method Room Air 06/23/24 15:58 Oxygen Flow Rate 0 06/23/24 15:58 Pain Level 4 06/23/24 15:58 Medical Decision Making Laboratory Studies Blood sugar 220. Initial Assessment: 79-year-old male with a left leg laceration and history of diabetes, presenting with redness and swelling. Differential Diagnosis: - Low suspicion for fracture or necrotizing fasciitis: No crepitus, neurova scularly intact, ambulatory with steady gait. ED Course: - Blood sugar 220. - Started on clindamycin 450 mg 3 times daily and mupirocin topically. - No indication for x-ray imaging at this time. - Recheck in 48 hours recommended. - Return precautions reviewed and patient expressed understanding. Final Assessment: Patient with left leg laceration and poorly controlled diabetes. Started on clindamycin 450 mg 3 times daily and mupirocin topically. Blood sugar noted to be 220, advised follow-up with primary care physician. Clinical Impression: - Left leg laceration - Diabetes mellitus Disposition: - Follow-Up: Encouraged to follow up with primary care physician regarding blood sugar level. MDM Components Evaluation: - Number of Differential Diagnoses or Management Options: Low suspicion for fracture or necrotizing fasciitis. - Amount and Complexity of Data Reviewed: Blood sugar level. - Risk of Complication and Morbidity or Mortality: Poorly controlled diabetes, risk of infection or complications from laceration. Quality:[facility] Health Related Social Needs: No Data to Display PFSH All Active Problems (Updated 06/23/24 @ 16:43 by YOLIE Wells) Cellulitis (Acute) Laceration of leg (Acute) Viral upper respiratory illness (Acute) Breezy's deformity of right heel (Acute) Tubular adenoma of colon (Acute ~04/03/23) Cellulitis (Acute) Ingrown toenail (Acute) Onychomycosis (Acute) Diabetes mellitus with neuropathy (Acute) Pain of right calf (Acute) Leg edema, right (Acute) Steatosis, liver (Acute) Intention tremor (Acute) Vitamin D deficiency (Acute) Depression (Chronic) Hyperlipidemia (Acute) Hypothyroidism (Chronic) Osteoarthritis (Chronic) Psoriasis (Chronic) Hypogonadism in male (Acute) Hypertension (Chronic) Type 2 diabetes mellitus (Acute) BPH w urinary obs/LUTS (Acute) Neuropathy (Acute) Corns and callosities (Acute) Nail dystrophy (Acute) Medical History Villous adenoma of colon x4 2021 at [facility] [place] History of atrial fibrillation Paroxysmal a-fib Urinary frequency Surgical History History of colonoscopy (~03/2023) path sent 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
== END 2024-06-23 16:58 | disposition home or self-care (01) ==
PROVIDERS: Emergency Provider Physician Assistant; PCP Family Medicine
DX: S81.812A Laceration without foreign body, left lower leg, initial encounter (principal); L03.116 Cellulitis of left lower limb; W19.XXXA Unspecified fall, initial encounter; E11.9 Type 2 diabetes mellitus without complications
CPT/HCPCS: 36416; 82962; 99283; 99284

== ENCOUNTER → 2024-07-03 13:00 | Outpatient (BNVA) | payer MEDICARE, SELFPAY | PROVIDERS: PCP Family Medicine; Referring Provider Family Medicine; Visit Provider Podiatrist | DX: L60.3 Nail dystrophy (principal); M79.671 Pain in right foot; M79.672 Pain in left foot; B35.1 Tinea unguium; I73.89 Other specified peripheral vascular diseases; E11.40 Type 2 diabetes mellitus with diabetic neuropathy, unspecified; L84 Corns and callosities; M92.61 Juvenile osteochondrosis of tarsus, right ankle; S90.811A Abrasion, right foot, initial encounter; R20.8 Other disturbances of skin sensation; R23.8 Other skin changes; L60.8 Other nail disorders; L60.2 Onychogryphosis; L85.8 Other specified epidermal thickening | CPT/HCPCS: 11056; 11719; 11721 ==

== ENCOUNTER → 2024-07-23 12:53 | Outpatient (BNVA) | payer MEDICARE, SELFPAY | PROVIDERS: PCP Family Medicine; Referring Provider Family Medicine; Visit Provider Nurse Practitioner Gerontology | DX: R33.8 Other retention of urine (principal); N40.1 Benign prostatic hyperplasia with lower urinary tract symptoms; N13.8 Other obstructive and reflux uropathy | CPT/HCPCS: 51798; 99213 ==

== ENCOUNTER 2024-09-09 08:50 | Outpatient (CLI) | payer MEDICARE, SELFPAY ==
[2024-09-09 13:12] LABS: Hemoglobin A1C 8.8 % (<5.7)
[2024-09-09 13:37] LABS: Calculated LDL 31 mg/dL (<100); Cholesterol 107 mg/dL (<200); HDL Cholesterol 60 mg/dL (>or=40); Triglyceride 80 mg/dL (<150)
[2024-09-20 18:02] LABS: Testosterone, Free 27.3 ng/dL (3.08-11.3); Testosterone, Total 713 ng/dL (240-950)
== END 2024-09-09 08:51 | disposition home or self-care (01) ==
LOC: LBO 08:50
PROVIDERS: PCP Family Medicine; Visit Provider Family Medicine
DX: E11.9 Type 2 diabetes mellitus without complications; E29.1 Testicular hypofunction
CPT/HCPCS: 36415; 80061; 84402; 84403; 83036